=== PATIENT | female | born 1955 | race Caucasian/White ===

== ENCOUNTER 2017-04-03 20:33 | Emergency (ER) | payer MEDICAID ==
[~2017-04-03] VITALS: Ht 157.5 cm; Wt 117.9 kg
[2017-04-03 20:37] VITALS: BP 151/79
[2017-04-03 21:03] LABS: Basophils # (auto) 0 uL; Basophils % (auto) 0.4 % (0.0-2.0); Eosinophils # (auto) 0.2 uL; Eosinophils % (auto) 1.8 % (0.0-7.0); Hematocrit 44.5 % (36.0-46.0); Hemoglobin 14.8 g/dL (12.2-16.2); Lymphocytes # (auto) 2.6 uL; Lymphocytes % (auto) 23.2 % (10.0-50.0); Mean Corpuscular Hemoglobin 28.6 pg (28.0-32.0); Mean Corpuscular Hgb Conc. 33.3 g/dL (32.0-36.0); Mean Corpuscular Volume 85.9 fL (80.0-100.0); Mean Platelet Volume 7.4 fL (7.4-10.4); Monocytes # (auto) 0.7 uL; Monocytes % (auto) 6.6 % (0.0-12.0); Neutrophils # (auto) 7.7 uL; Platelet Count (auto) 470 10^3/uL (140-450); Red Cell Distribution Width 13.9 % (11.6-16.0); White Blood Cell 11.3 10^3/uL (4.4-10.8)
[2017-04-03 21:22] LABS: Albumin 3.8 g/dL (3.4-5.0); Anion Gap 12 (5-15); Aspartate Aminotransferase 18 U/L (15-37); BUN/Creatinine Ratio 21.2; Blood Urea Nitrogen 21 mg/dL (7-18); Calcium 9.3 mg/dL (8.5-10.1); Carbon Dioxide 22 mmol/L (21-32); Chloride 105 mmol/L (98-107); GFR African American 74 mL/min; GFR Non-African American 61 mL/min; Glucose 100 mg/dL (74-106); Magnesium 2.1 mg/dL (1.6-2.6); Potassium 4.2 mmol/L (3.5-5.1); Sodium 139 mmol/L (136-145)
[2017-04-03 21:38] LABS: Alkaline Phosphatase 116 U/L (45-117); Bilirubin, Total 0.5 mg/dL (0.2-1.0); Total Protein 8.7 g/dL (6.4-8.2)
[2017-04-03 22:44] LABS: Urine Bilirubin Negative (Negative); Urine Blood Negative /uL (Negative); Urine Color Yellow (Yellow); Urine Glucose Normal (Normal); Urine Ketone Negative (Negative); Urine Nitrite Negative (Negative); Urine RBC 3 /hpf (0 - 4); Urine Squamous Epithelial Cell FEW /hpf (<5); Urine Urobilinogen Normal (Negative); Urine pH 5.5 (5.0-8.0)
== END 2017-04-04 01:15 | disposition left against medical advice (07) ==
LOC: ER 20:33
DX: R07.89 Other chest pain (principal); Z53.21 Procedure and treatment not carried out due to patient leaving prior to being seen by health care provider
CPT/HCPCS: 36415; 71020; 80053; 81001; 83735; 84443; 84484; 85025; 93005

== ENCOUNTER 2017-04-09 16:35 | Emergency (ER) | payer MEDICAID ==
[~2017-04-09] VITALS: Ht 157.5 cm; Wt 131.1 kg
[2017-04-09 17:49] LABS: Basophils # (auto) 0.2 uL; Basophils % (auto) 1.5 % (0.0-2.0); Eosinophils # (auto) 0.1 uL; Eosinophils % (auto) 1.2 % (0.0-7.0); Hemoglobin 14.5 g/dL (12.2-16.2); Lymphocytes # (auto) 2.5 uL; Lymphocytes % (auto) 20.2 % (10.0-50.0); Mean Corpuscular Hemoglobin 28.9 pg (28.0-32.0); Mean Corpuscular Hgb Conc. 33.8 g/dL (32.0-36.0); Mean Corpuscular Volume 85.5 fL (80.0-100.0); Mean Platelet Volume 7.9 fL (7.4-10.4); Monocytes # (auto) 0.9 uL; Monocytes % (auto) 6.8 % (0.0-12.0); Neutrophils # (auto) 8.9 uL; Neutrophils % (auto) 70.3 % (37.0-80.0); Platelet Count (auto) 440 10^3/uL (140-450); Red Cell Distribution Width 13.4 % (11.6-16.0); White Blood Cell 12.6 10^3/uL (4.4-10.8)
[2017-04-09 17:50] LABS: BUN/Creatinine Ratio 18.8; Calcium 9.1 mg/dL (8.5-10.1); Potassium 3.7 mmol/L (3.5-5.1)
[2017-04-09 22:15] LABS: B-Type Natriuretic Peptide 3.61 pg/mL (0-100)
[2017-04-09 22:19] LABS: Temperature: 23.5 C (20.0-25.0)
[2017-04-09 22:55] VITALS: BP 155/96
[2017-04-09] MEDS ORDERED: FUROSEMIDE 20 MG TAB PO ONE (23:00)
== END 2017-04-10 00:06 | disposition home or self-care (01) ==
LOC: ER 16:36
DX: R06.02 Shortness of breath (principal); I87.8 Other specified disorders of veins; R22.42 Localized swelling, mass and lump, left lower limb; Z88.2 Allergy status to sulfonamides
CPT/HCPCS: 36415; 71010; 73562; 80048; 83880; 84484; 85025; 93005; 93970

== ENCOUNTER 2017-12-23 06:55 | Day surgery (SDC) | payer MEDICAID ==
[~2017-12-23] VITALS: Ht 157.5 cm; Wt 131.5 kg
[~2017-12-23 06:55] MED LIST: ASPI81TA27 PO; LORA2TAB10 PO
[2017-12-23] MEDS ORDERED: IOHEXOL 350 MG/ML 100ML IJ ONE (07:32)
[2017-12-23] MEDS ORDERED: LIDOCAINE 2%HCL (LOCAL ANESTH.) INJ 20ML MDV ONE (07:32)
[2017-12-23] MEDS ORDERED: fentaNYL CITRATE 100 MCG/2 ML VL ONE ×2 (07:39→08:21)
[2017-12-23] MEDS ORDERED: MIDAZOLAM HCL 1MG/1ML-2 ML VIAL ONE (07:40)
[2017-12-23] MEDS ORDERED: ANGIOMAX 250 MG VIAL IV ONE (07:56)
[2017-12-23] MEDS ORDERED: SODIUM CHL 0.9% 0 ML ONE (07:56)
== END 2017-12-23 10:55 | disposition home or self-care (01) ==
LOC: CATH 06:55
PROVIDERS: ATTEND Internal Medicine Cardiovascular Disease
DX: R07.9 Chest pain, unspecified (principal); E66.01 Morbid (severe) obesity due to excess calories; Z68.43 Body mass index [BMI] 50.0-59.9, adult; Z88.2 Allergy status to sulfonamides; Z88.1 Allergy status to other antibiotic agents; I10 Essential (primary) hypertension; E11.9 Type 2 diabetes mellitus without complications; E78.5 Hyperlipidemia, unspecified; F41.9 Anxiety disorder, unspecified
CPT/HCPCS: 93460; C1760; C1894; J1644; J3010; J7030; Q9967; 93458; 99152; J2250

== ENCOUNTER → 2018-12-10 | Outpatient (CLI) | payer MEDICAID ==
[~2018-12-10] MED LIST changes: +KETOROLAC TROMETH 60MG/2ML VIAL IM ONE
[2018-12-10 16:00] VITALS: BP 149/77
--- NOTE | 2018-12-10 16:30 | NUR ---
PT. TO CLINIC FOR EKG PER DR. JAMES FOR CLEARANCE FOR RESUMING WT. LOSS CLINIC. WT. UP 18.4 LBS. SINCE LAST SEEN 8 MOS AGO. SPOUSE WITH PT, WHO COMPLAINING MORE OF LEFT KNEE PAIN DUE TO INCREASE WT GAIN. ORDERS RECEIVED AND CARRIED OUT.
--- NOTE | 2018-12-10 16:40 | NUR ---
EKG DONE SHOWING NSR WITH NO ECTOPY . RESULTS TO DR. JAMES.
--- NOTE | 2018-12-10 16:50 | NUR ---
MEDS: PT. MEDICATED WITH TORADOL 60MG IM PER MD AFTER ALL LABS REVIEWED WITH MD. COPIES OF OUTSIDE LABS GIVEN TO PT.
[2018-12-10 17:00] VITALS: BP 146/78
--- NOTE | 2018-12-10 17:00 | NUR ---
Discharge Instructions See e-MAR for any mediations given with this visit. Patient education given on disease process. Patient verbalized understanding. Previous labs reviewed. Patient discharged in stable condition with after care instructions and follow up appointment.PT. TO HAVE APPT. WITH DR. JAMES IN ONE WEEK.PT. INSTRUCTED TO INCREASE LASIX TO 40MG BID ON . AND FRIDAYS ONLY WITH ADJUSTMENT IN POTASSIUM.
== END | disposition home or self-care (01) ==
LOC: CHF HDHVI 16:40
PROVIDERS: ATTEND Internal Medicine
DX: E66.01 Morbid (severe) obesity due to excess calories (principal); M25.562 Pain in left knee; I25.10 Atherosclerotic heart disease of native coronary artery without angina pectoris; I10 Essential (primary) hypertension; E11.9 Type 2 diabetes mellitus without complications; E78.5 Hyperlipidemia, unspecified; F41.9 Anxiety disorder, unspecified; Z68.43 Body mass index [BMI] 50.0-59.9, adult
CPT/HCPCS: 93005; 96372; G0463; J1885

== ENCOUNTER → 2018-12-11 | Outpatient (CLI) | payer MEDICAID ==
[~2018-12-11] MED LIST changes: -KETOROLAC TROMETH 60MG/2ML VIAL IM ONE
== END | disposition home or self-care (01) ==
LOC: Rad HDHVI 13:11
PROVIDERS: ATTEND Internal Medicine Cardiovascular Disease
DX: K57.30 Diverticulosis of large intestine without perforation or abscess without bleeding (principal); N20.0 Calculus of kidney; K42.9 Umbilical hernia without obstruction or gangrene
CPT/HCPCS: 74176

== ENCOUNTER → 2018-12-29 | Outpatient (CLI) | payer MEDICARE, MEDICAID ==
[2018-12-29 16:06] LABS: BUN/Creatinine Ratio 21.7; Calcium 9.2 mg/dL (8.5-10.1); Magnesium 2.1 mg/dL (1.6-2.6); Potassium 3.7 mmol/L (3.5-5.1)
[2018-12-29 16:19] LABS: Uric Acid 9.4 mg/dL (2.6-6.0)
== END | disposition home or self-care (01) ==
LOC: CHF HDHVI 11:58
PROVIDERS: ATTEND Internal Medicine Cardiovascular Disease
DX: E83.40 Disorders of magnesium metabolism, unspecified (principal); I10 Essential (primary) hypertension; M10.9 Gout, unspecified
CPT/HCPCS: 36415; 80048; 83735; 84550

== ENCOUNTER → 2019-03-05 | Outpatient (CLI) | payer MEDICARE, MEDICAID ==
[~2019-03-05] MED LIST changes: +CHOL200031 PO; +CYANOCOBALAMIN (B-12) 1000 MCG/1 ML VIAL IM ONE; +CYANOCOBALAMIN (B-12) 1000 MCG/1 ML VIAL ONE; +FURO40TA4 PO; +MAGN400T5 PO; +POTA10TA75 PO
[2019-03-05 11:15] VITALS: BP 126/70
[2019-03-05 12:05] VITALS: BP 142/78
--- NOTE | 2019-03-05 12:05 | NUR ---
CHF CLINIC Discharge Instructions See e-MAR for any mediations given with this visit. Patient education given on disease process. Patient verbalized understanding. Previous labs reviewed. Patient discharged in stable condition with after care instructions and follow up appointment NEXT FRIDAY AT THE [facility]. NOTE B12 IM L DELTOID ADMIN BY ANNA SEPULVEDA. PRESCRIPTION FOR ULORIC 40MG DAILY SENT TO PATIENT PHARMACY.
[2019-03-05 15:58] LABS: Calcium 8.7 mg/dL (8.5-10.1); Magnesium 2.5 mg/dL (1.6-2.6); Potassium 3.9 mmol/L (3.5-5.1)
[2019-03-05 16:00] LABS: BUN/Creatinine Ratio 29.7
== END | disposition home or self-care (01) ==
LOC: CHF HDHVI 10:24
PROVIDERS: ATTEND Internal Medicine Cardiovascular Disease
DX: I11.0 Hypertensive heart disease with heart failure (principal); I50.32 Chronic diastolic (congestive) heart failure; R53.1 Weakness; M10.9 Gout, unspecified; I27.21 Secondary pulmonary arterial hypertension; G47.30 Sleep apnea, unspecified; Z90.49 Acquired absence of other specified parts of digestive tract; Z68.43 Body mass index [BMI] 50.0-59.9, adult; Z79.899 Other long term (current) drug therapy; Z79.82 Long term (current) use of aspirin
CPT/HCPCS: 36415; 80048; 83735; 84550; 96372; G0463; J3420

== ENCOUNTER → 2019-04-06 | Outpatient (CLI) | payer MEDICARE, MEDICAID ==
[~2019-04-06] MED LIST changes: +ACET-1304 PO; +CELE200C PO; -CYANOCOBALAMIN (B-12) 1000 MCG/1 ML VIAL IM ONE; -CYANOCOBALAMIN (B-12) 1000 MCG/1 ML VIAL ONE; +DOXE25CA2 PO; +FEBU80TA PO; +POTA20TA53 PO; +TORS20TA20 PO
[2019-04-06 10:30] VITALS: BP 143/90
--- NOTE | 2019-04-06 10:30 | NUR ---
CHF Pre-Op Discharge Summary: See e-MAR for any medications given for this visit. Pre-op orders received and carried out per MD of EKG, LABS and chest xrays. Patient given a copy of EKG with instructions to go to [facility] out patient for further follow up care.
[2019-04-06 11:00] VITALS: BP 128/77
[2019-04-06 12:03] LABS: Basophils # (auto) 0.1 uL; Eosinophils # (auto) 0.2 uL; Lymphocytes # (auto) 3.4 uL; Monocytes # (auto) 0.8 uL; White Blood Cell 12.9 10^3/uL (4.4-10.8)
[2019-04-06 12:08] LABS: Basophils % (auto) 0.6 % (0.0-2.0); Eosinophils % (auto) 1.6 % (0.0-7.0); Hematocrit 45.2 % (36.0-46.0); Hemoglobin 14.7 g/dL (12.2-16.2); Lymphocytes % (auto) 26.3 % (10.0-50.0); Mean Corpuscular Hemoglobin 28.6 pg (28.0-32.0); Mean Corpuscular Hgb Conc. 32.5 g/dL (32.0-36.0); Mean Corpuscular Volume 88.1 fL (80.0-100.0); Monocytes % (auto) 6.4 % (0.0-12.0); Neutrophils # (auto) 8.4 uL; Neutrophils % (auto) 65.1 % (37.0-80.0); Platelet Count (auto) 470 10^3/uL (140-450); Red Blood Cells 5.14 10^6/uL (4.0-5.20); Red Cell Distribution Width 13.9 % (11.8-14.3)
[2019-04-06 12:09] LABS: INR 0.99 (0.9-1.15); Partial Thromboplastin Time 26.3 sec (23.64-32.05); Prothrombin Time 10.7 sec (9.06-12.60)
[2019-04-06 12:34] LABS: Potassium 3.6 mmol/L (3.5-5.1)
[2019-04-06 12:41] LABS: BUN/Creatinine Ratio 29.6; Calcium 9.1 mg/dL (8.5-10.1)
== END | disposition home or self-care (01) ==
LOC: Rad HDHVI 10:15
PROVIDERS: ATTEND Internal Medicine Cardiovascular Disease
DX: Z01.818 Encounter for other preprocedural examination (principal); D64.9 Anemia, unspecified; R79.1 Abnormal coagulation profile; I11.0 Hypertensive heart disease with heart failure; I50.9 Heart failure, unspecified
CPT/HCPCS: 36415; 71046; 80048; 85025; 85610; 85730; 93005; G0463

== ENCOUNTER → 2019-04-08 | Day surgery (SDC) | payer MEDICARE, MEDICAID ==
[~2019-04-08] VITALS: Ht 157.5 cm; Wt 131.5 kg
[~2019-04-08] MED LIST changes: +ANGIOMAX 250 MG VIAL IV ONE; -ASPI81TA27 PO; -FURO40TA4 PO; +HYDROcodone-ACET 10/325MG TAB ONE; +IOHEXOL 350 MG/ML 100ML IJ ONE; +LIDOCAINE 2%HCL (LOCAL ANESTH.) INJ 20ML MDV ONE; -LORA2TAB10 PO; +MIDAZOLAM HCL 1MG/1ML-2 ML VIAL ONE; +POTA-220 PO; -POTA10TA75 PO; -POTA20TA53 PO; +SODIUM CHL 0.9% 0 ML ONE; +VERAPAMIL 2.5MG/ML INJ 2ML VIAL IV ONE; +fentaNYL CITRATE 100 MCG/2 ML VL ONE
== END | disposition home or self-care (01) ==
LOC: CATH 08:15
PROVIDERS: ATTEND Internal Medicine Cardiovascular Disease
DX: R07.9 Chest pain, unspecified (principal); R06.02 Shortness of breath; I11.0 Hypertensive heart disease with heart failure; I50.9 Heart failure, unspecified; E66.8 Other obesity; E11.40 Type 2 diabetes mellitus with diabetic neuropathy, unspecified; E11.21 Type 2 diabetes mellitus with diabetic nephropathy; E03.9 Hypothyroidism, unspecified; E78.5 Hyperlipidemia, unspecified; I73.9 Peripheral vascular disease, unspecified; I27.20 Pulmonary hypertension, unspecified; G47.33 Obstructive sleep apnea (adult) (pediatric); F41.9 Anxiety disorder, unspecified; M47.816 Spondylosis without myelopathy or radiculopathy, lumbar region; Z79.899 Other long term (current) drug therapy; Z88.2 Allergy status to sulfonamides; Z88.1 Allergy status to other antibiotic agents; Z68.43 Body mass index [BMI] 50.0-59.9, adult
CPT/HCPCS: 93460; C1760; C1769; C1894; J1644; J2250; J3010; J7030; 99152; 99153

== ENCOUNTER → 2019-04-21 | Outpatient (CLI) | payer MEDICARE, MEDICAID ==
[~2019-04-21] MED LIST changes: -ANGIOMAX 250 MG VIAL IV ONE; -HYDROcodone-ACET 10/325MG TAB ONE; -IOHEXOL 350 MG/ML 100ML IJ ONE; -LIDOCAINE 2%HCL (LOCAL ANESTH.) INJ 20ML MDV ONE; -MIDAZOLAM HCL 1MG/1ML-2 ML VIAL ONE; -POTA-220 PO; +POTA20TA53 PO; -SODIUM CHL 0.9% 0 ML ONE; -VERAPAMIL 2.5MG/ML INJ 2ML VIAL IV ONE; -fentaNYL CITRATE 100 MCG/2 ML VL ONE
== END | disposition home or self-care (01) ==
LOC: LAB 13:14
PROVIDERS: ATTEND Internal Medicine Cardiovascular Disease
DX: M10.9 Gout, unspecified (principal)
CPT/HCPCS: 36415; 84550

== ENCOUNTER → 2019-09-22 | Outpatient (CLI) | payer MEDICARE, MEDICAID ==
[~2019-09-22] MED LIST changes: +MAGN400T40 PO; -MAGN400T5 PO; +POTA-220 PO; -POTA20TA53 PO
== END | disposition home or self-care (01) ==
LOC: Rad HDHVI 10:47
PROVIDERS: ATTEND Internal Medicine Cardiovascular Disease
DX: I87.2 Venous insufficiency (chronic) (peripheral) (principal); I89.0 Lymphedema, not elsewhere classified
CPT/HCPCS: 93970

== ENCOUNTER → 2019-09-30 | Outpatient (CLI) | payer MEDICARE, MEDICAID ==
[~2019-09-30] MED LIST changes: -MAGN400T40 PO; +MAGN400T5 PO
== END | disposition home or self-care (01) ==
LOC: Rad HDHVI 14:50
PROVIDERS: ATTEND Internal Medicine Cardiovascular Disease
DX: I50.23 Acute on chronic systolic (congestive) heart failure (principal); I27.0 Primary pulmonary hypertension; R06.02 Shortness of breath
CPT/HCPCS: 93306

== ENCOUNTER → 2019-10-21 | Outpatient (CLI) | payer MEDICARE, MEDICAID ==
[~2019-10-21] VITALS: Ht 157.5 cm; Wt 133.8 kg
[~2019-10-21] MED LIST changes: +ADENOSINE 112 MG in GIVE UN-DILUTED 0 ML IV ONE; +ADENOSINE 90 MG/30 ML INJ IV ONE; +MAGN400T40 PO; -MAGN400T5 PO
[2019-10-21 15:57] LABS: Albumin 3.5 g/dL (3.4-5.0); Calcium 9.5 mg/dL (8.5-10.1); Potassium 3.2 mmol/L (3.5-5.1)
[2019-10-21 16:10] LABS: BUN/Creatinine Ratio 23.7; Bilirubin, Total 0.4 mg/dL (0.2-1.0); Total Protein 8.5 g/dL (6.4-8.2); Uric Acid 7.2 mg/dL (2.6-6.0)
== END | disposition home or self-care (01) ==
LOC: Rad HDHVI 12:38
PROVIDERS: ATTEND Internal Medicine Cardiovascular Disease
DX: M10.9 Gout, unspecified (principal); R06.02 Shortness of breath; I10 Essential (primary) hypertension; E78.00 Pure hypercholesterolemia, unspecified
CPT/HCPCS: 36415; 78452; 80053; 84550; 93005; 96374; 96375; A9500; J0153

== ENCOUNTER → 2019-10-26 | Outpatient (CLI) | payer MEDICARE, MEDICAID ==
[~2019-10-26] MED LIST changes: -ADENOSINE 112 MG in GIVE UN-DILUTED 0 ML IV ONE; -ADENOSINE 90 MG/30 ML INJ IV ONE
== END | disposition home or self-care (01) ==
LOC: LAB 14:16
PROVIDERS: ATTEND Internal Medicine Cardiovascular Disease
DX: R94.4 Abnormal results of kidney function studies (principal)
CPT/HCPCS: 36415; 82565

== ENCOUNTER → 2019-10-27 | Outpatient (CLI) | payer MEDICARE, MEDICAID ==
[~2019-10-27] MED LIST changes: +IOHEXOL 350 MG/ML 100ML IJ ONE
[2019-10-27 09:15] VITALS: BP 136/86
--- NOTE | 2019-10-27 09:15 | NUR ---
PT ARRIVED AT [facility] FOR CT ABD/PEL. PATIENT ALERT AND AWAKE WITH EVEN AND UNLABORED RESPIRATIONS. VVS.
--- NOTE | 2019-10-27 09:30 | NUR ---
IV insertion IV access obtained, via clean sterile technique by inserting [22] gauge catheter at [R HAND] after [2] attempt(s). IV secured properly. No trauma to site. Patient tolerated well. Addendum: 10/27/19 at 0957 by ANNA ALBRIGHT RN IV INSERTED BY SANDRO FIORE
--- NOTE | 2019-10-27 09:40 | NUR ---
PT BACK TO CT
--- NOTE | 2019-10-27 09:56 | NUR ---
IV removal IV DC'd with sterile technique, catheter fully intact. Pressure dressing applied to site. Patient tolerated procedure well.
[2019-10-27 10:00] VITALS: BP 149/86
--- NOTE | 2019-10-27 10:00 | NUR ---
CHF Clinic Discharge Instructions See e-MAR for any mediations given with this visit. Patient education given on disease process. Patient verbalized understanding. Previous labs reviewed. VSS after returning from CT. Patient discharged in stable condition with after care instructions. NOTES: Pt instructed to increase oral hydration over the next 24 hours. Patient verbalized understanding.
== END | disposition home or self-care (01) ==
LOC: Rad HDHVI 09:03
PROVIDERS: ATTEND Internal Medicine Cardiovascular Disease
DX: N20.0 Calculus of kidney (principal); K42.9 Umbilical hernia without obstruction or gangrene; K57.30 Diverticulosis of large intestine without perforation or abscess without bleeding; K85.90 Acute pancreatitis without necrosis or infection, unspecified; R06.02 Shortness of breath; R10.9 Unspecified abdominal pain
CPT/HCPCS: 74177; G0463; Q9967

== ENCOUNTER → 2020-03-29 | Outpatient (CLI) | payer MEDICARE, MEDICAID ==
[~2020-03-29] MED LIST changes: +FUROSEMIDE 100 MG/10ML VIAL IV ONE; +FUROSEMIDE 40 MG/4 ML VIAL ONE; -IOHEXOL 350 MG/ML 100ML IJ ONE; +POTASSIUM CHL 10 Meq TABLET PO ONE; +POTASSIUM CHL 20 Meq TABLET PO ONE
[2020-03-29 13:15] VITALS: BP 132/78
--- NOTE | 2020-03-29 13:15 | NUR ---
CHF PT ARRIVED TO THE CHF CLINIC FROM BACK OFFICE VISIT WITH ORDERS FROM MD JAMES. A/O X4, AMBULATORY. SEE EMAR FOR ORDERS CARRIED OUT.
[2020-03-29 13:52] VITALS: BP 146/82
--- NOTE | 2020-03-29 13:52 | NUR ---
Discharge Instructions See e-MAR for any mediations given with this visit. Patient education given on disease process. Patient verbalized understanding. Previous labs reviewed. Patient discharged in stable condition with after care instructions and follow up appointment. PT HAS A F/U APPOINTMENT ON 04/11/20 IN CHF CLINIC. NOTE LASIX IVP ADMIN BY AUSTIN FIORE K+ PO ADMIN BY AUSTIN FIORE
[2020-03-29 15:53] LABS: Urine Blood Negative /uL (Negative); Urine Specific Gravity 1.016 (1.001-1.035)
[2020-03-29 15:59] LABS: Basophils # (auto) 0.1 10 ^3/uL (0-0.2); Basophils % (auto) 0.8 % (0.0-2.0); Eosinophils # (auto) 0.2 10 ^3/uL (0-0.8); Eosinophils % (auto) 2.4 % (0.0-7.0); Hematocrit 44.5 % (36.0-46.0); Hemoglobin 14.4 g/dL (12.2-16.2); Lymphocytes # (auto) 2.2 10 ^3/uL (0.4-5.4); Lymphocytes % (auto) 23.4 % (10.0-50.0); Mean Corpuscular Hemoglobin 28.6 pg (28.0-32.0); Mean Corpuscular Hgb Conc. 32.5 g/dL (32.0-36.0); Monocytes # (auto) 0.7 10 ^3/uL (0-1.3); Monocytes % (auto) 7.5 % (0.0-12.0); Neutrophils # (auto) 6.2 10 ^3/uL (1.6-8.6); Neutrophils % (auto) 65.9 % (37.0-80.0); Nucleated Red Blood Cells % 0.1 %; Platelet Count (auto) 414 10^3/uL (140-450); Red Blood Cells 5.05 10^6/uL (4.0-5.20); Red Cell Distribution Width 13.6 % (11.8-14.3); White Blood Cell 9.4 10^3/uL (4.4-10.8)
[2020-03-29 16:07] LABS: Albumin 3.7 g/dL (3.4-5.0); Calcium 9.7 mg/dL (8.5-10.1); Potassium 3.4 mmol/L (3.5-5.1)
[2020-03-29 16:13] LABS: BUN/Creatinine Ratio 29.2; Bilirubin, Total 0.8 mg/dL (0.2-1.0); Total Protein 8.6 g/dL (6.4-8.2)
[2020-03-29 16:14] LABS: Free T4 (Free Thyroxine) 1.19 ng/dL (0.89-1.76)
== END | disposition home or self-care (01) ==
LOC: LAB 11:59
PROVIDERS: ATTEND Internal Medicine Cardiovascular Disease
DX: Z00.00 Encounter for general adult medical examination without abnormal findings (principal); E03.9 Hypothyroidism, unspecified; K90.9 Intestinal malabsorption, unspecified; Z79.899 Other long term (current) drug therapy; N39.0 Urinary tract infection, site not specified; D51.9 Vitamin B12 deficiency anemia, unspecified
CPT/HCPCS: 36415; 80053; 80061; 81003; 82306; 82607; 83036; 83880; 84439; 84443; 85025; 96374; G0463; J1940

== ENCOUNTER → 2020-04-11 | Outpatient (CLI) | payer MEDICARE, MEDICAID ==
[~2020-04-11] MED LIST changes: -POTASSIUM CHL 20 Meq TABLET PO ONE
--- NOTE | 2020-04-11 14:51 | NUR ---
CHF PT ARRIVED TO THE CHF CLINIC FOR F/U AND TREATMENT PER MD ORDERS. A/OX4. AMBULATORY WITH SOME SOB WITH AMBULATION NOTED. PT HAS 3.3 LB WT LOSS SINCE LAST VISIT ON 03/29/20. LABS DRAWN AND SENT.
[2020-04-11 15:28] VITALS: BP 121/86
--- NOTE | 2020-04-11 15:28 | NUR ---
Discharge Instructions See e-MAR for any mediations given with this visit. Patient education given on disease process. Patient verbalized understanding. Previous labs reviewed. Patient discharged in stable condition with after care instructions and follow up appointment. PT TO RETURN IN 2 WEEKS FOR F/U AND EVAL PER MD ORDERS. REINFORCED BETTER DIET HABITS AND ACTIVITY WITH PT. PT VERBALIZED UNDERSTANDING. NOTE LASIX IVP ADMIN BY AUSTIN FIORE K+ PO ADMIN BY AUSTIN FIORE
== END | disposition home or self-care (01) ==
LOC: CHF HDHVI 14:47
PROVIDERS: ATTEND Internal Medicine Cardiovascular Disease
DX: R06.02 Shortness of breath (principal); R94.4 Abnormal results of kidney function studies; E87.6 Hypokalemia; M10.9 Gout, unspecified; I50.9 Heart failure, unspecified; R53.83 Other fatigue; R60.9 Edema, unspecified
CPT/HCPCS: 36415; 71046; 82565; 84132; 84520; 84550; 96374; G0463; J1940

== ENCOUNTER → 2020-04-19 | Outpatient (CLI) | payer MEDICARE, MEDICAID ==
[~2020-04-19] MED LIST changes: -FUROSEMIDE 100 MG/10ML VIAL IV ONE; -FUROSEMIDE 40 MG/4 ML VIAL ONE; -POTASSIUM CHL 10 Meq TABLET PO ONE
[2020-04-19 16:25] LABS: BUN/Creatinine Ratio 16.7; Calcium 8.9 mg/dL (8.5-10.1); Potassium 3.4 mmol/L (3.5-5.1)
== END | disposition home or self-care (01) ==
LOC: LAB 14:55
PROVIDERS: ATTEND Internal Medicine Cardiovascular Disease
DX: I50.9 Heart failure, unspecified (principal)
CPT/HCPCS: 36415; 80048; 83880

== ENCOUNTER → 2020-04-24 | Outpatient (CLI) | payer MEDICARE, MEDICAID ==
[~2020-04-24] MED LIST changes: +IOHEXOL 350 MG/ML 100ML IJ ONE
[2020-04-24 11:30] VITALS: BP 128/70
--- NOTE | 2020-04-24 11:30 | NUR ---
CHF PT ARRIVED TO THE CHF CLINIC FOR CT CHEST WITH CONTRAST TO R/O PE. A/O X4. AMBULATORY.
--- NOTE | 2020-04-24 11:42 | NUR ---
IV insertion IV access obtained, via clean sterile technique by inserting 20 gauge catheter at RAC after 1 attempt(s). IV secured properly. No trauma to site. Patient tolerated procedure well. LABS DRAWN AND SENT NOTE INSERTED BY AUSTIN FIORE
--- NOTE | 2020-04-24 12:21 | NUR ---
IV removal IV DC'd with sterile technique, catheter fully intact. Pressure dressing applied to site. Patient tolerated procedure well. Discharged with aftercare instructions per MD. NOTE: REMOVED BY FLORENCE FIORE
[2020-04-24 12:30] VITALS: BP 141/68
--- NOTE | 2020-04-24 12:30 | NUR ---
Discharge Instructions See e-MAR for any mediations given with this visit. Patient education given on disease process. Patient verbalized understanding. Previous labs reviewed. Patient discharged in stable condition with after care instructions and follow up appointment. PT ON FLUID RESTRICTION BUT DUE TO CT PT TOLD TO DRINK 2L OF FLUIDS FOR THE NEXT 24HR.
== END | disposition home or self-care (01) ==
LOC: Rad HDHVI 11:05
PROVIDERS: ATTEND Internal Medicine Cardiovascular Disease
DX: M47.894 Other spondylosis, thoracic region (principal); J90 Pleural effusion, not elsewhere classified; R07.9 Chest pain, unspecified; R06.02 Shortness of breath
CPT/HCPCS: 36415; 71275; 82565; G0463; Q9967

== ENCOUNTER → 2020-05-05 | Outpatient (CLI) | payer MEDICARE, MEDICAID ==
[~2020-05-05] VITALS: Ht 157.5 cm; Wt 129.3 kg
[~2020-05-05] MED LIST changes: +ADENOSINE 108 MG in GIVE UN-DILUTED 0 ML IV ONE; +ADENOSINE 90 MG/30 ML INJ IV ONE; -IOHEXOL 350 MG/ML 100ML IJ ONE
== END | disposition home or self-care (01) ==
LOC: Rad HDHVI 10:09
PROVIDERS: ATTEND Internal Medicine Cardiovascular Disease
DX: R07.9 Chest pain, unspecified (principal); E78.00 Pure hypercholesterolemia, unspecified; E66.9 Obesity, unspecified
CPT/HCPCS: 78452; 93005; 96374; 96375; A9500; J0153

== ENCOUNTER → 2020-06-16 | Outpatient (CLI) | payer MEDICARE, MEDICAID ==
[~2020-06-16] MED LIST changes: -ADENOSINE 108 MG in GIVE UN-DILUTED 0 ML IV ONE; -ADENOSINE 90 MG/30 ML INJ IV ONE; +FUROSEMIDE 100 MG/10ML VIAL IV ONE; +FUROSEMIDE 20 MG TAB PO ONE; +FUROSEMIDE 40 MG TAB ONE; +FUROSEMIDE 40 MG/4 ML VIAL ONE; +POTASSIUM EFFERVESENT TAB 25 MEQ ONE; +POTASSIUM EFFERVESENT TAB 25 MEQ PO ONE
[2020-06-16 12:30] VITALS: BP 152/80
--- NOTE | 2020-06-16 12:30 | NUR ---
CLINIC PT ARRIVED TO THE CHF CLINIC FOR SCHEDULED EVAL AND TX. A/OX4, ON HOME SCOOTER. PT HAS A 2.6LB WT GAIN SINCE LAST VISIT ON 04/24/20. PT STATED THAT SHE DOES NOT TAKE HER HOME DIURETICS PRESCRIBED. HAD DISCUSSION WITH PT ABOUT THE IMPORTANCE OF FOLLOWING HER MEDICATION REGIMEN. PT VERBALIZED UNDERSTANDING.
--- NOTE | 2020-06-16 13:14 | NUR ---
LABS DRAWN AND SENT
[2020-06-16 13:33] VITALS: BP 129/83
--- NOTE | 2020-06-16 13:33 | NUR ---
Discharge Instructions See e-MAR for any mediations given with this visit. Patient education given on disease process. Patient verbalized understanding. Previous labs reviewed. Patient discharged in stable condition with after care instructions and follow up appointment IN 2 WEEKS. NOTE LASIX IVP ADMIN BY FLORENCE FIORE LASIX PO ADMIN BY FLORENCE QUISPE ELIX PO ADMIN BY FLORENCE FIORE
[2020-06-16 15:52] LABS: Basophils # (auto) 0.1 10 ^3/uL (0-0.2); Basophils % (auto) 0.7 % (0.0-2.0); Eosinophils # (auto) 0.2 10 ^3/uL (0-0.8); Eosinophils % (auto) 2.1 % (0.0-7.0); Hematocrit 42.3 % (36.0-46.0); Hemoglobin 13.7 g/dL (12.2-16.2); Lymphocytes # (auto) 2.3 10 ^3/uL (0.4-5.4); Lymphocytes % (auto) 29.4 % (10.0-50.0); Mean Corpuscular Hemoglobin 28.8 pg (28.0-32.0); Mean Corpuscular Hgb Conc. 32.3 g/dL (32.0-36.0); Monocytes # (auto) 0.7 10 ^3/uL (0-1.3); Monocytes % (auto) 8.6 % (0.0-12.0); Neutrophils # (auto) 4.6 10 ^3/uL (1.6-8.6); Neutrophils % (auto) 59.2 % (37.0-80.0); Nucleated Red Blood Cells % 0.1 %; Platelet Count (auto) 348 10^3/uL (140-450); Red Blood Cells 4.75 10^6/uL (4.0-5.20); Red Cell Distribution Width 13.9 % (11.8-14.3); White Blood Cell 7.8 10^3/uL (4.4-10.8)
[2020-06-16 16:28] LABS: Anion Gap 8 (5-15); Blood Urea Nitrogen 22 mg/dL (7-18); Carbon Dioxide 24 mmol/L (21-32); Chloride 104 mmol/L (98-107); Glucose 113 mg/dL (74-106); Potassium 3.6 mmol/L (3.5-5.1); Sodium 136 mmol/L (136-145)
[2020-06-16 16:29] LABS: BUN/Creatinine Ratio 23.7; GFR African American 78 mL/min; GFR Non-African American 65 mL/min; Magnesium 2.3 mg/dL (1.6-2.6)
== END | disposition home or self-care (01) ==
LOC: CHF HDHVI 12:28
PROVIDERS: ATTEND Internal Medicine Cardiovascular Disease
DX: E87.6 Hypokalemia (principal); I10 Essential (primary) hypertension; E83.40 Disorders of magnesium metabolism, unspecified; D64.9 Anemia, unspecified; Z79.899 Other long term (current) drug therapy
CPT/HCPCS: 36415; 80048; 83735; 85025; 96374; G0463; J1940

== ENCOUNTER → 2020-08-15 | Outpatient (CLI) | payer MEDICARE, MEDICAID ==
[~2020-08-15] MED LIST changes: -FUROSEMIDE 100 MG/10ML VIAL IV ONE; -FUROSEMIDE 20 MG TAB PO ONE; -FUROSEMIDE 40 MG TAB ONE; -FUROSEMIDE 40 MG/4 ML VIAL ONE; -POTASSIUM EFFERVESENT TAB 25 MEQ ONE; -POTASSIUM EFFERVESENT TAB 25 MEQ PO ONE
[2020-08-15 13:05] VITALS: BP 133/75
--- NOTE | 2020-08-15 13:05 | NUR ---
PATIENT INTO CLINIC FOR SCHEDULED APPT, AAOx4, AMBULATORY FROM ELECTRIC WHEELCHAIR TO CHAIR, BREATHING AND UNLABORED.
--- NOTE | 2020-08-15 13:25 | NUR ---
PORTACATH SITE INCISION WELL APPROXIMATED, SUTURES INTACT, BRUISING AND EDEMA PRESENT AT SITE, UNABLE TO PALPATE THE CENTER OF THE PORT, DID NOT ACCESS WAITING FOR THE SURGEON TO F/U WITH PATIENT AND OK FOR ACCESS.
--- NOTE | 2020-08-15 14:00 | NUR ---
WOUND CARE PATIENT HAS 2CM CIRCULAR WOUND ON ABD IN THE LOWER LEFT QUADRANT, CLEANSED WITH NS, CULTURE TAKEN, THIN LAYER OF THERA HONEY APPLIED, NON ADHERENT DRESSING APPLIED AND COVERED WITH A TRANSPARENT TEGADERM.
--- NOTE | 2020-08-15 14:15 | NUR ---
BLOOD DRAWN AND SENT FOR STAT LABS AND WOUND CULTURE.
[2020-08-15 14:30] VITALS: BP 157/87
--- NOTE | 2020-08-15 14:30 | NUR ---
Discharge Instructions See e-MAR for any mediations given with this visit. Patient education given on disease process. Patient verbalized understanding. Previous labs reviewed. Patient discharged in stable condition with after care instructions and follow up appointment. NOTE PATIENT EDUCATED ON DIET AND WEIGHT LOSS PER DR JAMES PREVIOUS INSTRUCTIONS, PATIENT UP .7LBS, BY AUSTIN FIORE. PATIENT HAS F/U WITH PORTACATH PLACEMENT MD GUERRERO.
[2020-08-15 14:50] LABS: Basophils # (auto) 0.1 10 ^3/uL (0-0.2); Basophils % (auto) 0.6 % (0.0-2.0); Eosinophils # (auto) 0.2 10 ^3/uL (0-0.8); Eosinophils % (auto) 1.8 % (0.0-7.0); Hematocrit 39.7 % (36.0-46.0); Hemoglobin 13.2 g/dL (12.2-16.2); Lymphocytes # (auto) 2.1 10 ^3/uL (0.4-5.4); Lymphocytes % (auto) 23.7 % (10.0-50.0); Mean Corpuscular Hemoglobin 28.7 pg (28.0-32.0); Mean Corpuscular Hgb Conc. 33.3 g/dL (32.0-36.0); Mean Corpuscular Volume 86.2 fL (80.0-100.0); Monocytes # (auto) 0.7 10 ^3/uL (0-1.3); Monocytes % (auto) 8.3 % (0.0-12.0); Neutrophils # (auto) 5.8 10 ^3/uL (1.6-8.6); Neutrophils % (auto) 65.6 % (37.0-80.0); Nucleated Red Blood Cells % 0.1 %; Platelet Count (auto) 358 10^3/uL (140-450); Red Cell Distribution Width 13.3 % (11.8-14.3); White Blood Cell 8.9 10^3/uL (4.4-10.8)
[2020-08-15 15:01] LABS: Albumin 3.4 g/dL (3.4-5.0); BUN/Creatinine Ratio 17.8; Calcium 9.5 mg/dL (8.5-10.1); Magnesium 1.8 mg/dL (1.6-2.6); Potassium 4.1 mmol/L (3.5-5.1)
[2020-08-15 15:03] LABS: Bilirubin, Total 0.5 mg/dL (0.2-1.0); Total Protein 7.9 g/dL (6.4-8.2)
== END | disposition home or self-care (01) ==
LOC: CHF HDHVI 13:18
PROVIDERS: ATTEND Internal Medicine Cardiovascular Disease
DX: S31.109A Unspecified open wound of abdominal wall, unspecified quadrant without penetration into peritoneal cavity, initial encounter (principal); R53.83 Other fatigue; E66.9 Obesity, unspecified; I50.9 Heart failure, unspecified; Z96.89 Presence of other specified functional implants; X58.XXXA Exposure to other specified factors, initial encounter; Y93.89 Activity, other specified; Y92.89 Other specified places as the place of occurrence of the external cause; Y99.8 Other external cause status
CPT/HCPCS: 36415; 80053; 83735; 83880; 85025; 87205; G0463

== ENCOUNTER → 2020-08-16 | Outpatient (CLI) | payer MEDICARE, MEDICAID ==
[2020-08-16 13:50] VITALS: BP 126/78
[2020-08-16 14:35] VITALS: BP 128/80
== END | disposition home or self-care (01) ==
LOC: CHF HDHVI 13:39
PROVIDERS: ATTEND Internal Medicine Cardiovascular Disease
DX: T14.8XXA Other injury of unspecified body region, initial encounter (principal); E66.9 Obesity, unspecified; I50.9 Heart failure, unspecified; R60.9 Edema, unspecified; X58.XXXA Exposure to other specified factors, initial encounter; Y93.89 Activity, other specified; Y92.89 Other specified places as the place of occurrence of the external cause; Y99.8 Other external cause status; Z96.89 Presence of other specified functional implants
CPT/HCPCS: 71046; G0463

== ENCOUNTER → 2020-08-28 | Outpatient (CLI) | payer MEDICARE, MEDICAID ==
--- NOTE | 2020-08-28 14:15 | NUR ---
PT. TO CLINIC PRIOR TO MD EXAM C/O NAUSEA POSSIBLY FROM ABX REGIMEN. PT. HAS BEEN ON DOXYCYCLINE 100MG BID X 5 DAYS WITH DIFLUCAN 100MG PO X 5 DAYS. NEW EDY CATH RT. UPPER CHEST CONTINUES TO LOOK BETTER, WITH PT. C/O CONTINUED TENDERNESS POST SUTURES REMOVAL. VSS. LABS TO BE DRAWN WITH LABS OF 08/15 REVIEWED WITH PT. ORDERS RECEIVED AND CARRIED OUT.
[2020-08-28 14:20] VITALS: BP 147/78
--- NOTE | 2020-08-28 14:40 | NUR ---
WOUND: WOUND TO LEFT GROIN AREA UNDER SKIN FOLD ALMOST CLOSED AND LEFT OPEN TO AIR, WITH STERILE ABD TO SITE. NO DRAINAGE NOTED, NO REDNESS.
--- NOTE | 2020-08-28 15:00 | NUR ---
LABS DRAWN AND SENT PER MD ORDER.
--- NOTE | 2020-08-28 15:20 | NUR ---
PT. DC'D TO DR. JAMES'S OFFICE FOR EXAM.
[2020-08-28 16:20] VITALS: BP 142/76
--- NOTE | 2020-08-28 16:20 | NUR ---
PT. RTC WITH NEW ORDERS FOR ADDITIONAL LABS AND ORDER TO ACCESS EDY CATH PER DR. JAMES IN AM. PT. WILL RTC AT 10:00 TOMORROW. FOR PROCEDURE AND LABS AND POSSIBLE INFUSION.
--- NOTE | 2020-08-28 16:30 | NUR ---
Discharge Instructions See e-MAR for any mediations given with this visit. Patient education given on disease process. Patient verbalized understanding. Previous labs reviewed. Patient discharged in stable condition with after care instructions and follow up appointment.
== END | disposition home or self-care (01) ==
LOC: CHF HDHVI 14:21
PROVIDERS: ATTEND Internal Medicine Cardiovascular Disease
DX: Z13.1 Encounter for screening for diabetes mellitus (principal); E55.9 Vitamin D deficiency, unspecified; I50.9 Heart failure, unspecified; M10.9 Gout, unspecified; E66.01 Morbid (severe) obesity due to excess calories; G62.9 Polyneuropathy, unspecified; Z96.89 Presence of other specified functional implants; Z79.899 Other long term (current) drug therapy
CPT/HCPCS: 36415; 82306; 83036; G0463

== ENCOUNTER → 2020-08-29 | Outpatient (CLI) | payer MEDICARE, MEDICAID ==
[~2020-08-29] MED LIST changes: +BACITRACIN TOP OINT 1 UD PKG TOP ONE
[2020-08-29 11:52] VITALS: BP 110/73
--- NOTE | 2020-08-29 11:52 | NUR ---
CLINIC PT ARRIVED TO THE CHF CLINIC FOR PORT SITE EVAL S/P SURGICAL PORT INSERTION. A/OX4, PT ARRIVED ON HOME MOBILE WHEELCHAIR, BREATHING IS EVEN AND UNLABORED. PT STATED THAT SHE FEELS MUCH BETTER THAN SHE DID YESTERDAY.
--- NOTE | 2020-08-29 12:05 | NUR ---
MULTIPLE ATTEMPTS TO ACCESS PORT BY AUSTIN RN BY LOCATING THE PORT USING THE PARAMETERS, ATTEMPTS WERE UNSUCCESSFUL.
--- NOTE | 2020-08-29 12:36 | NUR ---
LABS DRAWN AND SENT STAT
--- NOTE | 2020-08-29 13:29 | NUR ---
WOUND CARE DONE BY FLORENCE FIORE BACITRACIN WAS APPLIED TO CLEAN SURGICAL INCISION SITE ON RU NON STICK PAD PLACED ON TOP AND TEGADERM PLACED OVER. PT WAS GIVEN EXTRA SUPPLIES AND INSTRUCTIONS FOR HOME WOUND CARE.
[2020-08-29 14:04] LABS: Basophils # (auto) 0.1 10 ^3/uL (0-0.2); Basophils % (auto) 0.7 % (0.0-2.0); Eosinophils # (auto) 0.2 10 ^3/uL (0-0.8); Eosinophils % (auto) 3.2 % (0.0-7.0); Hemoglobin 13.6 g/dL (12.2-16.2); Lymphocytes # (auto) 2.4 10 ^3/uL (0.4-5.4); Lymphocytes % (auto) 30.5 % (10.0-50.0); Mean Corpuscular Hemoglobin 28.7 pg (28.0-32.0); Mean Corpuscular Hgb Conc. 32.4 g/dL (32.0-36.0); Mean Corpuscular Volume 88.5 fL (80.0-100.0); Monocytes # (auto) 0.6 10 ^3/uL (0-1.3); Monocytes % (auto) 8.2 % (0.0-12.0); Neutrophils # (auto) 4.5 10 ^3/uL (1.6-8.6); Neutrophils % (auto) 57.4 % (37.0-80.0); Nucleated Red Blood Cells % 0.1 %; Platelet Count (auto) 355 10^3/uL (140-450); Red Blood Cells 4.75 10^6/uL (4.0-5.20); White Blood Cell 7.8 10^3/uL (4.4-10.8)
[2020-08-29 14:12] LABS: BUN/Creatinine Ratio 17.9; Calcium 9.8 mg/dL (8.5-10.1); Magnesium 2.1 mg/dL (1.6-2.6); Potassium 3.6 mmol/L (3.5-5.1)
--- NOTE | 2020-08-29 15:00 | NUR ---
UPDATE GIVEN TO MD JAMES WITH CXR AND LAB RESULTS, CXR SHOWS NO CHANGE TO PORT SITE COMPARED TO PREVIOUS CXR, NEW ORDERS RECEIVED AND CARRIED OUT PER MD, PT TO BE D/C WITH PO ANTIBIOTICS AND RTC IN 1 WEEK. PT IS HEMODYNAMICALLY STABLE.
[2020-08-29 15:12] VITALS: BP 139/63
--- NOTE | 2020-08-29 15:12 | NUR ---
Discharge Instructions See e-MAR for any mediations given with this visit. Patient education given on disease process. Patient verbalized understanding. Previous labs reviewed. Patient discharged in stable condition with after care instructions and follow up appointment IN 1 WEEK. PRESCRIPTION FOR KEFLEX 500MG PO QID X7DAYS CALLED TO THE PATIENTS PHARMACY. Addendum: 08/29/20 at 1548 by FLORENCE ROSALES RN RN [place] NOTE WOUND CARE DONE BY FLORENCE FIORE
== END | disposition home or self-care (01) ==
LOC: CHF HDHVI 12:08
PROVIDERS: ATTEND Internal Medicine Cardiovascular Disease
DX: J98.11 Atelectasis (principal); R06.02 Shortness of breath; I50.23 Acute on chronic systolic (congestive) heart failure; Z96.89 Presence of other specified functional implants
CPT/HCPCS: 36415; 71046; 80048; 83735; 85025; 85652; G0463

== ENCOUNTER → 2020-09-05 | Outpatient (CLI) | payer MEDICARE, MEDICAID ==
[~2020-09-05] MED LIST changes: -BACITRACIN TOP OINT 1 UD PKG TOP ONE
[2020-09-05 14:33] VITALS: BP 143/69
--- NOTE | 2020-09-05 14:33 | NUR ---
CLINIC PT ARRIVED TO THE [facility] FOR EVAL ON INCISION SITE S/P PORT INSERTION. A/OX 4, AMBULATORY, BREATHING IS EVEN AND UNLABORED. ACCOMPANIED BY . COMPLAINS OF PAIN AROUND THE SIDES OF WOUND.
--- NOTE | 2020-09-05 14:41 | NUR ---
WOUND CARE DONE BY AUSTIN FIORE NO SWELLING TO INCISION SITE. PT C/O PAIN AROUND SITE, AREA CLEANED WITH CLORA PRED SWAPS. APPT MADE WITH MD JAMES FOR TOMORROW TO [place] FOR PAIN
[2020-09-05 15:05] VITALS: BP 152/74
--- NOTE | 2020-09-05 15:05 | NUR ---
Discharge Instructions See e-MAR for any mediations given with this visit. Patient education given on disease process. Patient verbalized understanding. Previous labs reviewed. Patient discharged in stable condition with after care instructions and follow up appointment TOMORROW WITH MD JAMES. NOTE WOUND CARE DONE BY AUSTIN FIORE
== END | disposition home or self-care (01) ==
LOC: CHF HDHVI 14:31
PROVIDERS: ATTEND Internal Medicine Cardiovascular Disease
DX: I11.0 Hypertensive heart disease with heart failure (principal); I50.23 Acute on chronic systolic (congestive) heart failure
CPT/HCPCS: G0463

== ENCOUNTER → 2020-09-13 | Outpatient (CLI) | payer MEDICARE, MEDICAID ==
[2020-09-13 14:30] VITALS: BP 178/70
--- NOTE | 2020-09-13 14:30 | NUR ---
CLINIC PT ARRIVED TO CLINIC FOR PORT SITE EVALUATION S/P PORT INSERTION.
--- NOTE | 2020-09-13 14:39 | NUR ---
LABS DRAWN AND SENT
[2020-09-13 14:50] VITALS: BP 140/67
--- NOTE | 2020-09-13 14:50 | NUR ---
Discharge Instructions See e-MAR for any mediations given with this visit. Patient education given on disease process. Patient verbalized understanding. Previous labs reviewed. Patient discharged in stable condition with after care instructions and follow up appointment WITH MD JAMES NOW.
[2020-09-13 15:03] LABS: Basophils # (auto) 0.1 10 ^3/uL (0-0.2); Eosinophils # (auto) 0.2 10 ^3/uL (0-0.8); Eosinophils % (auto) 2.2 % (0.0-7.0); Hematocrit 40.1 % (36.0-46.0); Hemoglobin 13.6 g/dL (12.2-16.2); Lymphocytes # (auto) 2.5 10 ^3/uL (0.4-5.4); Lymphocytes % (auto) 28.1 % (10.0-50.0); Mean Corpuscular Hemoglobin 29.3 pg (28.0-32.0); Mean Corpuscular Hgb Conc. 33.8 g/dL (32.0-36.0); Mean Corpuscular Volume 86.8 fL (80.0-100.0); Monocytes # (auto) 0.8 10 ^3/uL (0-1.3); Monocytes % (auto) 8.4 % (0.0-12.0); Neutrophils # (auto) 5.5 10 ^3/uL (1.6-8.6); Neutrophils % (auto) 60.3 % (37.0-80.0); Nucleated Red Blood Cells % 0.1 %; Platelet Count (auto) 375 10^3/uL (140-450); Red Blood Cells 4.62 10^6/uL (4.0-5.20); Red Cell Distribution Width 12.7 % (11.8-14.3); White Blood Cell 9.1 10^3/uL (4.4-10.8)
== END | disposition home or self-care (01) ==
LOC: CHF HDHVI 14:46
PROVIDERS: ATTEND Internal Medicine Cardiovascular Disease
DX: I10 Essential (primary) hypertension (principal); D64.9 Anemia, unspecified; Z98.890 Other specified postprocedural states
CPT/HCPCS: 36415; 85025; G0463

== ENCOUNTER → 2020-09-15 | Outpatient (CLI) | payer MEDICARE, MEDICAID | END | disposition home or self-care (01) | LOC: Rad HDHVI 15:07 | PROVIDERS: ATTEND Internal Medicine Cardiovascular Disease | DX: R00.2 Palpitations (principal); R06.02 Shortness of breath; E78.00 Pure hypercholesterolemia, unspecified; R06.9 Unspecified abnormalities of breathing | CPT/HCPCS: 93306 ==

== ENCOUNTER → 2020-11-29 | Outpatient (CLI) | payer MEDICARE, MEDICAID ==
[~2020-11-29] MED LIST changes: +ACET300T4 PO; +ALPR0.254 PO; +ASCO100076 PO; +ASHW1CAP PO; +CALC-479 PO; +CHOL500040 PO; +COEN100C37 PO; +CYAN100028 SL; +FURO40TA4 PO; +GABA-339 PO; +GARC500T PO; +GARL200T PO; +GING550C PO; +HYDR-4188 PO; +KRIL1CAP11 PO; +METO5TAB5 PO; +MULT50TA14 PO; +OMEG1CAP59 PO; +PANT40TA2 PO; +POTA1TAB61 PO; +PREG50CA PO; +TURM450C PO; +ZINC50TA7 PO; +[UNRECOGNIZED DRUG - CODE] PO
[2020-11-29 15:15] LABS: Basophils # (auto) 0.1 10 ^3/uL (0-0.2); Basophils % (auto) 0.7 % (0.0-2.0); Eosinophils # (auto) 0.2 10 ^3/uL (0-0.8); Eosinophils % (auto) 2.4 % (0.0-7.0); Hematocrit 40.2 % (36.0-46.0); Hemoglobin 13.7 g/dL (12.2-16.2); Lymphocytes # (auto) 2.3 10 ^3/uL (0.4-5.4); Mean Corpuscular Hemoglobin 29.9 pg (28.0-32.0); Mean Corpuscular Hgb Conc. 34.2 g/dL (32.0-36.0); Mean Corpuscular Volume 87.6 fL (80.0-100.0); Monocytes # (auto) 0.5 10 ^3/uL (0-1.3); Monocytes % (auto) 7.2 % (0.0-12.0); Neutrophils # (auto) 4.1 10 ^3/uL (1.6-8.6); Neutrophils % (auto) 57.7 % (37.0-80.0); Nucleated Red Blood Cells % 0.3 %; Red Blood Cells 4.58 10^6/uL (4.0-5.20); Red Cell Distribution Width 13.5 % (11.8-14.3)
[2020-11-29 15:26] LABS: Calcium 9.1 mg/dL (8.5-10.1); Potassium 3.6 mmol/L (3.5-5.1)
== END | disposition home or self-care (01) ==
LOC: Rad HDHVI 11:19
PROVIDERS: ATTEND Internal Medicine Cardiovascular Disease
DX: I10 Essential (primary) hypertension (principal); E11.9 Type 2 diabetes mellitus without complications; D64.9 Anemia, unspecified; Z96.89 Presence of other specified functional implants
CPT/HCPCS: 36415; 71046; 80048; 83036; 85025; 93970

== ENCOUNTER → 2021-02-07 | Day surgery (SDC) | payer MEDICARE, MEDICAID ==
[2021-02-02 15:15] LABS: Basophils # (auto) 0.1 10 ^3/uL (0-0.2); Basophils % (auto) 0.9 % (0.0-2.0); Eosinophils # (auto) 0.1 10 ^3/uL (0-0.8); Eosinophils % (auto) 1.6 % (0.0-7.0); Hematocrit 44.6 % (36.0-46.0); Lymphocytes # (auto) 2.2 10 ^3/uL (0.4-5.4); Lymphocytes % (auto) 25.3 % (10.0-50.0); Mean Corpuscular Hemoglobin 29.3 pg (28.0-32.0); Mean Corpuscular Hgb Conc. 33.7 g/dL (32.0-36.0); Mean Corpuscular Volume 87.1 fL (80.0-100.0); Monocytes # (auto) 0.8 10 ^3/uL (0-1.3); Monocytes % (auto) 9.6 % (0.0-12.0); Neutrophils # (auto) 5.5 10 ^3/uL (1.6-8.6); Neutrophils % (auto) 62.6 % (37.0-80.0); Nucleated Red Blood Cells % 0.1 %; Platelet Count (auto) 369 10^3/uL (140-450); Red Blood Cells 5.12 10^6/uL (4.0-5.20); White Blood Cell 8.8 10^3/uL (4.4-10.8)
[2021-02-02 15:31] LABS: INR 1.11 (0.9-1.15); Partial Thromboplastin Time 27.6 sec (23.0-31.2)
[2021-02-02 15:34] LABS: Urine Bacteria FEW /hpf (None Seen); Urine Blood Negative /uL (Negative); Urine Hyaline Cast FEW /lpf (0 - 2); Urine Mucus FEW (None Seen); Urine Specific Gravity 1.022 (1.001-1.035); Urine WBC <1 /hpf (0 - 5)
[2021-02-02 15:41] LABS: Calcium 9.6 mg/dL (8.5-10.1); Potassium 3.5 mmol/L (3.5-5.1)
[2021-02-02 15:44] LABS: BUN/Creatinine Ratio 26.9; Bilirubin, Total 0.4 mg/dL (0.2-1.0); Total Protein 8.9 g/dL (6.4-8.2)
[~2021-02-07] VITALS: Ht 157.5 cm; Wt 135.2 kg
[~2021-02-07] MED LIST changes: -ACET-1304 PO; +BUPIVACAINE 0.25% INJ 50ML VIAL ONE; -CHOL200031 PO; +HYDROmorphone HCL 2 MG/ML VL IV PRN; +HYDROmorphone HCL 2 MG/ML VL ONE; +LIDOCAINE 1% HCL (LOCAL ANESTH.) INJ 20ML MDV ONE; -METO5TAB5 PO; +METO5TAB56 PO; +MIDAZOLAM HCL 1MG/1ML-2 ML VIAL ONE; +ONDANSETRON HCL 4 MG/2 ML VIAL IV PRN; +ONDANSETRON HCL 4 MG/2 ML VIAL ONE; -POTA-220 PO; +PROPOFOL 10 MG/ML 20 ML IV ONE; +ceFAZolin 1GM/50ML 50 ML IV ONE; +fentaNYL CITRATE 100 MCG/2 ML VL ONE
[2021-02-07 12:25] VITALS: BP 106/61
== END | disposition home or self-care (01) ==
LOC: SUR 07:30
PROVIDERS: ATTEND Surgery
DX: Z45.2 Encounter for adjustment and management of vascular access device (principal); T82.598A Other mechanical complication of other cardiac and vascular devices and implants, initial encounter; I50.9 Heart failure, unspecified; R60.9 Edema, unspecified; G47.30 Sleep apnea, unspecified; F41.9 Anxiety disorder, unspecified; M79.9 Soft tissue disorder, unspecified; J34.1 Cyst and mucocele of nose and nasal sinus; E66.01 Morbid (severe) obesity due to excess calories; I11.0 Hypertensive heart disease with heart failure; K21.9 Gastro-esophageal reflux disease without esophagitis; I27.20 Pulmonary hypertension, unspecified; G62.9 Polyneuropathy, unspecified; G89.29 Other chronic pain; M54.9 Dorsalgia, unspecified; E78.00 Pure hypercholesterolemia, unspecified; M25.50 Pain in unspecified joint; M19.90 Unspecified osteoarthritis, unspecified site; M79.10 Myalgia, unspecified site; E66.9 Obesity, unspecified; Z68.43 Body mass index [BMI] 50.0-59.9, adult; Z98.890 Other specified postprocedural states; Z20.822 Contact with and (suspected) exposure to COVID-19; Z88.1 Allergy status to other antibiotic agents; Z88.8 Allergy status to other drugs, medicaments and biological substances
CPT/HCPCS: 36415; 36589; 80053; 81001; 85025; 85610; 85730; J0690; J1170; J2001; J2250; J2405; J2704; J3010; J3490; U0003; 87070; 87075; 87205

== ENCOUNTER → 2021-03-02 | Outpatient (CLI) | payer MEDICARE, MEDICAID ==
[~2021-03-02] MED LIST changes: -BUPIVACAINE 0.25% INJ 50ML VIAL ONE; -HYDROmorphone HCL 2 MG/ML VL IV PRN; -HYDROmorphone HCL 2 MG/ML VL ONE; -LIDOCAINE 1% HCL (LOCAL ANESTH.) INJ 20ML MDV ONE; -MIDAZOLAM HCL 1MG/1ML-2 ML VIAL ONE; -ONDANSETRON HCL 4 MG/2 ML VIAL IV PRN; -ONDANSETRON HCL 4 MG/2 ML VIAL ONE; -PROPOFOL 10 MG/ML 20 ML IV ONE; -ceFAZolin 1GM/50ML 50 ML IV ONE; -fentaNYL CITRATE 100 MCG/2 ML VL ONE
[2021-03-02 09:15] VITALS: BP 155/87
[2021-03-02 10:02] VITALS: BP 136/86
== END | disposition home or self-care (01) ==
LOC: CHF HDHVI 09:19
PROVIDERS: ATTEND Internal Medicine Cardiovascular Disease
DX: M79.669 Pain in unspecified lower leg (principal)
CPT/HCPCS: G0463

== ENCOUNTER → 2021-03-27 | Outpatient (CLI) | payer MEDICARE, MEDICAID ==
[~2021-03-27] MED LIST changes: +METO5TAB5 PO; -METO5TAB56 PO
[2021-03-27 15:46] LABS: Potassium 3.1 mmol/L (3.5-5.1)
[2021-03-27 15:48] LABS: BUN/Creatinine Ratio 20.5
== END | disposition home or self-care (01) ==
LOC: LAB 14:26
PROVIDERS: ATTEND Internal Medicine Cardiovascular Disease
DX: I11.0 Hypertensive heart disease with heart failure (principal); I50.23 Acute on chronic systolic (congestive) heart failure
CPT/HCPCS: 36415; 80048; 83880

== ENCOUNTER → 2021-08-17 | Outpatient (CLI) | payer MEDICARE, MEDICAID ==
[2021-08-17 12:01] LABS: Urine Blood Negative /uL (Negative); Urine Specific Gravity 1.021 (1.001-1.035)
[2021-08-17 12:03] LABS: Basophils # (auto) 0.1 10 ^3/uL (0-0.2); Basophils % (auto) 0.7 % (0.0-2.0); Eosinophils # (auto) 0.2 10 ^3/uL (0-0.8); Eosinophils % (auto) 2.1 % (0.0-7.0); Hematocrit 42.7 % (36.0-46.0); Hemoglobin 13.9 g/dL (12.2-16.2); Lymphocytes # (auto) 2.8 10 ^3/uL (0.4-5.4); Lymphocytes % (auto) 30.2 % (10.0-50.0); Mean Corpuscular Hemoglobin 28.7 pg (28.0-32.0); Mean Corpuscular Hgb Conc. 32.5 g/dL (32.0-36.0); Mean Corpuscular Volume 88.2 fL (80.0-100.0); Monocytes # (auto) 0.6 10 ^3/uL (0-1.3); Monocytes % (auto) 6.7 % (0.0-12.0); Neutrophils # (auto) 5.6 10 ^3/uL (1.6-8.6); Neutrophils % (auto) 60.3 % (37.0-80.0); Nucleated Red Blood Cells % 0.2 %; Red Blood Cells 4.84 10^6/uL (4.0-5.20); Red Cell Distribution Width 13.5 % (11.8-14.3); White Blood Cell 9.3 10^3/uL (4.4-10.8)
[2021-08-17 12:12] LABS: Free T4 (Free Thyroxine) 1.09 ng/dL (0.89-1.76)
[2021-08-17 13:36] LABS: Potassium 3.5 mmol/L (3.5-5.1)
[2021-08-17 13:41] LABS: Albumin 3.1 g/dL (3.4-5.0); BUN/Creatinine Ratio 19.7; Calcium 9.6 mg/dL (8.5-10.1)
[2021-08-17 14:19] LABS: Bilirubin, Total 0.4 mg/dL (0.2-1.0); Total Protein 7.9 g/dL (6.4-8.2)
== END | disposition home or self-care (01) ==
LOC: LAB 10:14
PROVIDERS: ATTEND Internal Medicine Cardiovascular Disease
DX: D51.3 Other dietary vitamin B12 deficiency anemia (principal); I10 Essential (primary) hypertension; E11.9 Type 2 diabetes mellitus without complications; E55.9 Vitamin D deficiency, unspecified; D64.9 Anemia, unspecified; R00.2 Palpitations; R53.1 Weakness; R30.0 Dysuria
CPT/HCPCS: 36415; 80053; 80061; 81003; 82306; 82607; 83036; 84439; 84443; 85025

== ENCOUNTER 2021-09-04 14:22 | Inpatient (IN) | payer OTHER, MEDICAID ==
[~2021-09-04] VITALS: Ht 157.5 cm; Wt 133.9 kg
[2021-09-04 16:25] LABS: Basophils # (auto) 0 10 ^3/uL (0-0.2); Basophils % (auto) 0.2 % (0.0-2.0); Eosinophils # (auto) 0 10 ^3/uL (0-0.8); Hemoglobin 14.2 g/dL (12.2-16.2); Lymphocytes # (auto) 1.1 10 ^3/uL (0.4-5.4); Lymphocytes % (auto) 10.9 % (10.0-50.0); Mean Corpuscular Hemoglobin 29.5 pg (28.0-32.0); Mean Corpuscular Hgb Conc. 33.8 g/dL (32.0-36.0); Mean Corpuscular Volume 87.4 fL (80.0-100.0); Monocytes # (auto) 0.6 10 ^3/uL (0-1.3); Monocytes % (auto) 5.6 % (0.0-12.0); Neutrophils # (auto) 8.8 10 ^3/uL (1.6-8.6); Neutrophils % (auto) 83.3 % (37.0-80.0); Red Blood Cells 4.81 10^6/uL (4.0-5.20); Red Cell Distribution Width 13.7 % (11.8-14.3); White Blood Cell 10.5 10^3/uL (4.4-10.8)
[2021-09-04 16:46] LABS: Albumin 2.7 g/dL (3.4-5.0); Potassium 4.2 mmol/L (3.5-5.1)
[2021-09-04 16:49] LABS: Bilirubin, Total 0.4 mg/dL (0.2-1.0)
[2021-09-04] MEDS ORDERED: DexAMETHasone SOD PHOS 10MG/1ML VIAL INJ IV ONE (17:45)
[2021-09-04] MEDS ORDERED: ZINC SULFATE 220mg CAP or TAB PO ONE (17:45)
[2021-09-04] MEDS ORDERED: AZITHROMYCIN 500MG/ 250ML 250 ML IV ONE (17:45)
[2021-09-04] MEDS ORDERED: cefTRIAXone 1GM/50ML D5W 50 ML IV ONE (17:45)
[2021-09-04] MEDS ORDERED: ASCORBIC ACID 500 MG TAB PO ONE (17:45)
[2021-09-04] MEDS ORDERED: ONDANSETRON HCL 4 MG/2 ML VIAL IV PRN (20:45)
[2021-09-04] MEDS ORDERED: HYDROcodone-ACET 5/325MG TAB PO PRN (20:45)
[2021-09-04] MEDS ORDERED: MORPHINE SULFATE INJECTION 2 MG/ML SYRG IV PRN (20:45)
[2021-09-04] MEDS ORDERED: REMDESIVIR PER PHARMACY 0 ML IV SCH (20:45)
[2021-09-04] MEDS ORDERED: NITROGLYCERIN 0.4 MG SL TAB SL PRN (20:45)
[2021-09-04] MEDS: GABAPENTIN 300 MG CAP PO SCH (22:00)
[2021-09-04] MEDS: MAGNESIUM OXIDE 400 MG TAB PO SCH (22:00)
[2021-09-04] MEDS: ENOXAPARIN SOD 40 MG/0.4 ML SYRINGE SC SCH (22:00)
[2021-09-05] VITALS (7 sets, daily range): BP systolic 108–137; BP diastolic 64–93
[2021-09-05] MEDS: GABAPENTIN 300 MG CAP PO SCH ×3 (05:21→22:25)
[2021-09-05 06:02] LABS: Basophils # (auto) 0 10 ^3/uL (0-0.2); Basophils % (auto) 0.3 % (0.0-2.0); Eosinophils # (auto) 0 10 ^3/uL (0-0.8); Hematocrit 41.5 % (36.0-46.0); Hemoglobin 13.8 g/dL (12.2-16.2); Lymphocytes # (auto) 0.9 10 ^3/uL (0.4-5.4); Lymphocytes % (auto) 11.9 % (10.0-50.0); Mean Corpuscular Hemoglobin 29.8 pg (28.0-32.0); Mean Corpuscular Hgb Conc. 33.1 g/dL (32.0-36.0); Mean Corpuscular Volume 89.8 fL (80.0-100.0); Monocytes # (auto) 0.3 10 ^3/uL (0-1.3); Monocytes % (auto) 4.6 % (0.0-12.0); Neutrophils # (auto) 6.1 10 ^3/uL (1.6-8.6); Neutrophils % (auto) 83.2 % (37.0-80.0); Nucleated Red Blood Cells % 0.1 %; Red Blood Cells 4.62 10^6/uL (4.0-5.20); White Blood Cell 7.3 10^3/uL (4.4-10.8)
[2021-09-05 06:23] LABS: Albumin 2.4 g/dL (3.4-5.0); BUN/Creatinine Ratio 17.3; Calcium 9.1 mg/dL (8.5-10.1); Potassium 4.5 mmol/L (3.5-5.1)
[2021-09-05 06:25] LABS: Bilirubin, Total 0.3 mg/dL (0.2-1.0); Total Protein 7.5 g/dL (6.4-8.2)
[2021-09-05] MEDS: MAGNESIUM OXIDE 400 MG TAB PO SCH (08:21)
[2021-09-05] MEDS: CHOLECALCIFEROL (VITD3) 2,000 UNIT CAP/TAB PO SCH (08:22)
[2021-09-05] MEDS: PANTOPRAZOLE 40 MG TAB PO SCH (08:23)
[2021-09-05] MEDS: ZINC SULFATE 220mg CAP or TAB PO SCH (08:25)
[2021-09-05] MEDS: ASCORBIC ACID 1,000 MG TAB PO SCH (08:26)
[2021-09-05] MEDS: ENOXAPARIN SOD 40 MG/0.4 ML SYRINGE SC SCH ×2 (08:27→22:25)
[2021-09-05 09:10] LABS: Urine Bacteria FEW /hpf (None Seen); Urine Blood Negative /uL (Negative); Urine Specific Gravity 1.015 (1.001-1.035); Urine WBC 4 /hpf (0 - 5)
[2021-09-05] MEDS ORDERED: hydrOXYchloroQUINE SULFATE 200 MG TAB PO SCH (10:00)
[2021-09-05] MEDS ORDERED: FUROSEMIDE 40 MG TAB PO SCH (10:00)
[2021-09-05] MEDS ORDERED: FUROSEMIDE 20 MG/2 ML VIAL IV ONE (10:30)
[2021-09-05] MEDS: DexAMETHasone SOD PHOS 10MG/1ML VIAL INJ IV SCH (10:38)
[2021-09-05] MEDS: cefTRIAXone 1GM/50ML D5W 50 ML IV SCH (10:38)
[2021-09-05] MEDS: AZITHROMYCIN 500MG/ 250ML 250 ML IV SCH (11:48)
[2021-09-05] MEDS: ACETAMINOPHEN 500 MG TAB PO PRN ×2 (11:49→20:50)
[2021-09-05] MEDS ORDERED: FOLI1TAB6 PO (14:18)
[2021-09-05] MEDS ORDERED: GARL10005 PO (14:18)
[2021-09-05] MEDS ORDERED: DOXY100C2 PO (14:18)
[2021-09-05] MEDS ORDERED: COCO1000 OR (14:19)
[2021-09-05] MEDS ORDERED: REMDESIVIR 200 MG in NS 210ml LOADING DOSE ADULT IV ONE (15:00)
[2021-09-05] MEDS: ALBUTEROL SULF HFA 90MCG INH 200DOSE IN PRN (22:25)
[2021-09-06] MEDS: ACETAMINOPHEN 500 MG TAB PO PRN (04:24)
[2021-09-06 05:00] VITALS: BP 124/62
[2021-09-06] MEDS: ALBUTEROL SULF HFA 90MCG INH 200DOSE IN PRN ×2 (06:20→19:44)
[2021-09-06 06:51] LABS: Albumin 2.4 g/dL (3.4-5.0); Potassium 4.1 mmol/L (3.5-5.1)
[2021-09-06] MEDS: GABAPENTIN 300 MG CAP PO SCH ×3 (06:54→22:15)
[2021-09-06 06:57] LABS: BUN/Creatinine Ratio 23.1; Bilirubin, Total 0.3 mg/dL (0.2-1.0); Total Protein 7.4 g/dL (6.4-8.2)
[2021-09-06] MEDS: CHOLECALCIFEROL (VITD3) 2,000 UNIT CAP/TAB PO SCH (09:00)
[2021-09-06] MEDS: ZINC SULFATE 220mg CAP or TAB PO SCH (09:00)
[2021-09-06] MEDS: ASCORBIC ACID 1,000 MG TAB PO SCH (09:00)
[2021-09-06] MEDS: PANTOPRAZOLE 40 MG TAB PO SCH (09:00)
[2021-09-06] MEDS: cefTRIAXone 1GM/50ML D5W 50 ML IV SCH (09:00)
[2021-09-06] MEDS: ENOXAPARIN SOD 40 MG/0.4 ML SYRINGE SC SCH ×2 (09:01→22:15)
[2021-09-06] MEDS: FUROSEMIDE 40 MG/4 ML VIAL IV SCH (09:01)
[2021-09-06] MEDS: DexAMETHasone SOD PHOS 10MG/1ML VIAL INJ IV SCH (09:01)
[2021-09-06 09:05] VITALS: BP 138/73
[2021-09-06] MEDS: AZITHROMYCIN 500MG/ 250ML 250 ML IV SCH (11:00)
[2021-09-06] MEDS ORDERED: AZITHROMYCIN 250 MG TAB PO ONE (13:00)
[2021-09-06 13:03] VITALS: BP 133/76
[2021-09-06] MEDS: ACETAMINOPHEN/CODEINE#3 (300/30mg) TAB PO PRN ×2 (13:14→19:55)
[2021-09-06] MEDS: REMDESIVIR 100mg 100 MG in SODIUM CHL 0.9% 230 ML IV SCH (15:00)
[2021-09-06 16:37] VITALS: BP 124/70
[2021-09-06] MEDS ORDERED: IOHEXOL 350 MG/ML 100ML IJ ONE (17:11)
[2021-09-06] MEDS: ENSURE CLEAR Mixed Berry 8oz Carton PO SCH (19:19)
[2021-09-06 22:00] VITALS: BP 135/58
[2021-09-06] MEDS: TEMAZEPAM 15 MG CAP PO PRN (22:49)
[2021-09-07] MEDS: ACETAMINOPHEN/CODEINE#3 (300/30mg) TAB PO PRN ×3 (04:10→20:25)
[2021-09-07 05:00] VITALS: BP 117/77
[2021-09-07] MEDS: GABAPENTIN 300 MG CAP PO SCH ×3 (06:05→22:25)
[2021-09-07] MEDS: cefTRIAXone 1GM/50ML D5W 50 ML IV SCH (08:06)
[2021-09-07] MEDS: CHOLECALCIFEROL (VITD3) 2,000 UNIT CAP/TAB PO SCH (08:07)
[2021-09-07] MEDS: ASCORBIC ACID 1,000 MG TAB PO SCH (08:07)
[2021-09-07] MEDS: DexAMETHasone SOD PHOS 10MG/1ML VIAL INJ IV SCH (08:07)
[2021-09-07] MEDS: FUROSEMIDE 40 MG/4 ML VIAL IV SCH (08:07)
[2021-09-07] MEDS: PANTOPRAZOLE 40 MG TAB PO SCH (08:07)
[2021-09-07] MEDS: AZITHROMYCIN 250 MG TAB PO SCH (08:08)
[2021-09-07] MEDS: ENOXAPARIN SOD 40 MG/0.4 ML SYRINGE SC SCH ×2 (08:08→22:25)
[2021-09-07] MEDS: ZINC SULFATE 220mg CAP or TAB PO SCH (08:08)
[2021-09-07 08:59] VITALS: BP 125/69
[2021-09-07] MEDS: ENSURE CLEAR Mixed Berry 8oz Carton PO SCH ×2 (10:41→18:18)
[2021-09-07 12:41] VITALS: BP 114/80
[2021-09-07] MEDS: REMDESIVIR 100mg 100 MG in SODIUM CHL 0.9% 230 ML IV SCH (13:36)
[2021-09-07] MEDS ORDERED: IOHEXOL 350 MG/ML 100ML IJ ONE (15:30)
[2021-09-07 16:15] VITALS: BP 138/78
[2021-09-07 22:17] VITALS: BP 137/79
[2021-09-08] MEDS: TEMAZEPAM 15 MG CAP PO PRN (01:35)
[2021-09-08 02:25] VITALS: BP 137/79
[2021-09-08 05:00] VITALS: BP 123/73
[2021-09-08] MEDS: GABAPENTIN 300 MG CAP PO SCH ×3 (06:35→22:09)
[2021-09-08] MEDS: ACETAMINOPHEN/CODEINE#3 (300/30mg) TAB PO PRN (06:35)
[2021-09-08 06:57] LABS: Hematocrit 40.5 % (36.0-46.0); Hemoglobin 13.5 g/dL (12.2-16.2); Mean Corpuscular Hemoglobin 28.7 pg (28.0-32.0); Mean Corpuscular Hgb Conc. 33.3 g/dL (32.0-36.0); Mean Corpuscular Volume 86.3 fL (80.0-100.0); Red Blood Cells 4.69 10^6/uL (4.0-5.20); Red Cell Distribution Width 13.3 % (11.8-14.3); White Blood Cell 10.8 10^3/uL (4.4-10.8)
[2021-09-08 07:00] LABS: Basophils % (manual) 0 (0.0-2.0); Blast Cells 0; Eosinophils % (manual) 0 (0-7); Metamyelocytes % 0; Promyelocytes % 0; Reactive Lymphocytes 0
[2021-09-08 07:13] LABS: Potassium 3.7 mmol/L (3.5-5.1)
[2021-09-08] MEDS: ALBUTEROL SULF HFA 90MCG INH 200DOSE IN PRN ×2 (07:13→21:46)
[2021-09-08 07:23] LABS: Albumin 2.6 g/dL (3.4-5.0); BUN/Creatinine Ratio 30.7; Bilirubin, Total 0.3 mg/dL (0.2-1.0); Total Protein 7.6 g/dL (6.4-8.2)
[2021-09-08 09:00] VITALS: BP 111/65
[2021-09-08 09:29] LABS: Band Neutrophils % (manual) 1; Lymphocytes % (manual) 24 (10.0-50.0); Monocytes % (manual) 6 (0-12); Myelocytes % 2
[2021-09-08] MEDS: DexAMETHasone SOD PHOS 10MG/1ML VIAL INJ IV SCH (10:18)
[2021-09-08] MEDS: cefTRIAXone 1GM/50ML D5W 50 ML IV SCH (10:18)
[2021-09-08] MEDS: ENSURE CLEAR Mixed Berry 8oz Carton PO SCH ×2 (10:18→18:19)
[2021-09-08] MEDS: PANTOPRAZOLE 40 MG TAB PO SCH (10:19)
[2021-09-08] MEDS: FUROSEMIDE 40 MG/4 ML VIAL IV SCH (10:19)
[2021-09-08] MEDS: CHOLECALCIFEROL (VITD3) 2,000 UNIT CAP/TAB PO SCH (10:19)
[2021-09-08] MEDS: AZITHROMYCIN 250 MG TAB PO SCH (10:19)
[2021-09-08] MEDS: ENOXAPARIN SOD 40 MG/0.4 ML SYRINGE SC SCH ×2 (10:19→22:09)
[2021-09-08 12:38] VITALS: BP 108/67
[2021-09-08] MEDS: REMDESIVIR 100mg 100 MG in SODIUM CHL 0.9% 230 ML IV SCH (15:33)
[2021-09-08 16:58] VITALS: BP 141/79
[2021-09-08 22:00] VITALS: BP 121/64
[2021-09-09 05:00] VITALS: BP 133/61
[2021-09-09] MEDS: GABAPENTIN 300 MG CAP PO SCH ×3 (05:47→21:34)
[2021-09-09] MEDS: ALBUTEROL SULF HFA 90MCG INH 200DOSE IN PRN (07:08)
[2021-09-09 07:24] LABS: Potassium 3.6 mmol/L (3.5-5.1)
[2021-09-09 07:37] LABS: Albumin 2.7 g/dL (3.4-5.0); Bilirubin, Total 0.3 mg/dL (0.2-1.0); Calcium 8.6 mg/dL (8.5-10.1); Total Protein 7.4 g/dL (6.4-8.2)
[2021-09-09] MEDS: ENSURE CLEAR Mixed Berry 8oz Carton PO SCH ×2 (07:50→18:00)
[2021-09-09] MEDS: cefTRIAXone 1GM/50ML D5W 50 ML IV SCH (08:52)
[2021-09-09 09:00] VITALS: BP 112/64
[2021-09-09] MEDS: DexAMETHasone SOD PHOS 10MG/1ML VIAL INJ IV SCH (09:57)
[2021-09-09] MEDS: PANTOPRAZOLE 40 MG TAB PO SCH (09:58)
[2021-09-09] MEDS: FUROSEMIDE 40 MG/4 ML VIAL IV SCH (09:58)
[2021-09-09] MEDS: CHOLECALCIFEROL (VITD3) 2,000 UNIT CAP/TAB PO SCH (09:58)
[2021-09-09] MEDS: ENOXAPARIN SOD 40 MG/0.4 ML SYRINGE SC SCH ×2 (09:59→21:34)
[2021-09-09] MEDS: AZITHROMYCIN 250 MG TAB PO SCH (09:59)
[2021-09-09] MEDS: ACETAMINOPHEN/CODEINE#3 (300/30mg) TAB PO PRN (09:59)
[2021-09-09 13:00] VITALS: BP 98/52
[2021-09-09] MEDS: REMDESIVIR 100mg 100 MG in SODIUM CHL 0.9% 230 ML IV SCH (15:50)
[2021-09-09 17:00] VITALS: BP 115/69
[2021-09-09 22:00] VITALS: BP 135/76
[2021-09-10 04:47] VITALS: BP 118/67
[2021-09-10] MEDS: ACETAMINOPHEN/CODEINE#3 (300/30mg) TAB PO PRN ×2 (05:20→11:20)
[2021-09-10] MEDS: GABAPENTIN 300 MG CAP PO SCH ×2 (05:21→13:17)
[2021-09-10] MEDS: ALBUTEROL SULF HFA 90MCG INH 200DOSE IN PRN (06:03)
[2021-09-10] MEDS: ENSURE CLEAR Mixed Berry 8oz Carton PO SCH (08:00)
[2021-09-10] MEDS: CHOLECALCIFEROL (VITD3) 2,000 UNIT CAP/TAB PO SCH (09:23)
[2021-09-10] MEDS: PANTOPRAZOLE 40 MG TAB PO SCH (09:23)
[2021-09-10] MEDS: AZITHROMYCIN 250 MG TAB PO SCH (09:23)
[2021-09-10] MEDS: cefTRIAXone 1GM/50ML D5W 50 ML IV SCH (09:24)
[2021-09-10] MEDS: ENOXAPARIN SOD 40 MG/0.4 ML SYRINGE SC SCH (09:24)
[2021-09-10] MEDS: DexAMETHasone SOD PHOS 10MG/1ML VIAL INJ IV SCH (09:24)
[2021-09-10] MEDS ORDERED: CHOL1CAP47 PO (12:24)
[2021-09-10] MEDS ORDERED: ALBUAER3 IN (12:24)
== END 2021-09-10 15:38 | disposition home or self-care (01) | DRG 871 ==
LOC: ER 14:22 → TELE 20:37 → TELE-EAST 23:29
PROVIDERS: ADMIT Nurse Practitioner; ATTEND Internal Medicine Pulmonary Disease
PROC: XW033E5 Introduction of Remdesivir Anti-infective into Peripheral Vein, Percutaneous Approach, New Technology Group 5 (ICD-10-PCS; principal; 2021-09-04)
DX: A41.89 Other specified sepsis (principal); U07.1 COVID-19; J96.01 Acute respiratory failure with hypoxia; J12.82 Pneumonia due to coronavirus disease 2019; Z68.43 Body mass index [BMI] 50.0-59.9, adult; I50.9 Heart failure, unspecified; E66.01 Morbid (severe) obesity due to excess calories; G47.30 Sleep apnea, unspecified; G47.33 Obstructive sleep apnea (adult) (pediatric); I11.0 Hypertensive heart disease with heart failure; R65.20 Severe sepsis without septic shock; R19.7 Diarrhea, unspecified; Z88.2 Allergy status to sulfonamides; Z88.8 Allergy status to other drugs, medicaments and biological substances
CPT/HCPCS: 36415; 71045; 71275; 80053; 81001; 82306; 82728; 83605; 83615; 83735; 83880; 84443; 84484; 85007; 85025; 85027; 85379; 86141; 87040; 87426; 93970; 94640; 96365; 96366; 96368; 96375; 97116; 97163; 97530; 99291; G0378; J0696; J1100

== ENCOUNTER → 2022-01-17 | Outpatient (CLI) | payer MEDICARE, MEDICAID ==
[~2022-01-17] MED LIST changes: +ALBUAER3 IN; -CALC-479 PO; -CELE200C PO; +CHOL1CAP47 PO; +COCO1000 OR; +DOXY100C2 PO; -FEBU80TA PO; +FOLI1TAB6 PO; +GARL10005 PO; -GARL200T PO; -HYDR-4188 PO; -KRIL1CAP11 PO; -METO5TAB5 PO; -OMEG1CAP59 PO; -PANT40TA2 PO; -PREG50CA PO; -TORS20TA20 PO
[2022-01-17 11:40] LABS: Folate (Folic Acid) > 24.00 ng/mL (5.38-24)
== END | disposition home or self-care (01) ==
LOC: LAB 10:12
PROVIDERS: ATTEND Internal Medicine
DX: R73.03 Prediabetes (principal); M10.9 Gout, unspecified
CPT/HCPCS: 36415; 82607; 82746; 84443; 84550

== ENCOUNTER → 2022-04-03 | Outpatient (CLI) | payer MEDICAID ==
[2022-04-03 15:56] LABS: Basophils # (auto) 0.3 10 ^3/uL (0-0.2); Eosinophils # (auto) 0.1 10 ^3/uL (0-0.8); Eosinophils % (auto) 1.4 % (0.0-7.0); Hematocrit 42.5 % (36.0-46.0); Hemoglobin 14.3 g/dL (12.2-16.2); Lymphocytes # (auto) 2.4 10 ^3/uL (0.4-5.4); Lymphocytes % (auto) 26.4 % (10.0-50.0); Mean Corpuscular Hemoglobin 29.3 pg (28.0-32.0); Mean Corpuscular Hgb Conc. 33.7 g/dL (32.0-36.0); Mean Corpuscular Volume 87.2 fL (80.0-100.0); Monocytes # (auto) 0.5 10 ^3/uL (0-1.3); Monocytes % (auto) 5.6 % (0.0-12.0); Neutrophils # (auto) 5.9 10 ^3/uL (1.6-8.6); Neutrophils % (auto) 63.6 % (37.0-80.0); Nucleated Red Blood Cells % 0.1 %; Red Blood Cells 4.88 10^6/uL (4.0-5.20); Red Cell Distribution Width 14.6 % (11.8-14.3); White Blood Cell 9.3 10^3/uL (4.4-10.8)
[2022-04-03 16:01] LABS: Urine Bacteria NONE SEEN /hpf (None Seen); Urine Blood 1+ /uL (Negative); Urine Specific Gravity 1.024 (1.001-1.035); Urine WBC 1 /hpf (0 - 5)
[2022-04-03 16:28] LABS: Albumin 3.5 g/dL (3.4-5.0); Calcium 9.6 mg/dL (8.5-10.1); Potassium 4.1 mmol/L (3.5-5.1); Uric Acid 5.7 mg/dL (2.6-6.0)
[2022-04-03 16:34] LABS: BUN/Creatinine Ratio 20.2; Bilirubin, Total 0.7 mg/dL (0.2-1.0); Total Protein 8.2 g/dL (6.4-8.2)
== END | disposition home or self-care (01) ==
LOC: LAB 15:36
PROVIDERS: ATTEND Internal Medicine
DX: R73.03 Prediabetes (principal); E78.5 Hyperlipidemia, unspecified; E53.8 Deficiency of other specified B group vitamins; E79.0 Hyperuricemia without signs of inflammatory arthritis and tophaceous disease
CPT/HCPCS: 36415; 80053; 80061; 81001; 82306; 83036; 84550; 85025

== ENCOUNTER → 2022-04-26 | Outpatient (CLI) | payer MEDICARE, MEDICAID ==
[2022-04-26 15:49] LABS: Urine Bacteria NONE SEEN /hpf (None Seen); Urine Blood Negative /uL (Negative); Urine Specific Gravity 1.023 (1.001-1.035); Urine WBC 3 /hpf (0 - 5)
[2022-04-26 16:11] LABS: Amylase 49 U/L (25-115); Lipase 150 U/L (73-393)
[2022-04-27 05:07] LABS: RPR Non Reactive (Non Reactive)
== END | disposition home or self-care (01) ==
LOC: LAB 15:23
PROVIDERS: ATTEND Internal Medicine
DX: E78.5 Hyperlipidemia, unspecified (principal); E66.9 Obesity, unspecified; R73.03 Prediabetes; R41.3 Other amnesia
CPT/HCPCS: 36415; 81001; 82150; 82607; 83690; 84443; 85652; 86592

== ENCOUNTER 2022-07-29 09:08 | Day surgery (SDC) | payer MEDICARE, MEDICAID ==
[2022-07-26 13:20] LABS: Basophils # (auto) 0.1 10 ^3/uL (0-0.2); Basophils % (auto) 1.2 % (0.0-2.0); Eosinophils # (auto) 0.2 10 ^3/uL (0-0.8); Eosinophils % (auto) 1.8 % (0.0-7.0); Hematocrit 44.9 % (36.0-46.0); Hemoglobin 14.5 g/dL (12.2-16.2); Lymphocytes # (auto) 2.6 10 ^3/uL (0.4-5.4); Lymphocytes % (auto) 27.4 % (10.0-50.0); Mean Corpuscular Hemoglobin 28.7 pg (28.0-32.0); Mean Corpuscular Hgb Conc. 32.3 g/dL (32.0-36.0); Mean Corpuscular Volume 88.7 fL (80.0-100.0); Monocytes # (auto) 0.9 10 ^3/uL (0-1.3); Monocytes % (auto) 9.5 % (0.0-12.0); Neutrophils # (auto) 5.8 10 ^3/uL (1.6-8.6); Neutrophils % (auto) 60.1 % (37.0-80.0); Nucleated Red Blood Cells % 0.1 %; Red Blood Cells 5.06 10^6/uL (4.0-5.20); Red Cell Distribution Width 14.4 % (11.8-14.3); White Blood Cell 9.6 10^3/uL (4.4-10.8)
[2022-07-26 13:43] LABS: INR 1.07 (0.9-1.15); Partial Thromboplastin Time 32.5 sec (24.6-33.4)
[2022-07-26 13:44] LABS: Albumin 3.6 g/dL (3.4-5.0); Calcium 9.5 mg/dL (8.5-10.1); Potassium 3.7 mmol/L (3.5-5.1)
[2022-07-26 13:55] LABS: BUN/Creatinine Ratio 23.2; Bilirubin, Total 0.4 mg/dL (0.2-1.0); Total Protein 7.4 g/dL (6.4-8.2); Urine Bacteria NONE SEEN /hpf (None Seen); Urine Blood 1+ /uL (Negative); Urine Mucus FEW (None Seen); Urine Specific Gravity 1.023 (1.001-1.035); Urine WBC 9 /hpf (0 - 5)
[~2022-07-29] VITALS: Ht 157.5 cm; Wt 135.2 kg
[~2022-07-29 09:08] MED LIST changes: -ACET300T4 PO; +ACET30TA15 PO; -ALPR0.254 PO; -ASCO100076 PO; -ASHW1CAP PO; -CHOL500040 PO; -COCO1000 OR; -COEN100C37 PO; -CYAN100028 SL; -DOXY100C2 PO; -FOLI1TAB6 PO; -GARC500T PO; -GARL10005 PO; -GING550C PO; +MULT1TAB95 PO; -MULT50TA14 PO; -TURM450C PO; -ZINC50TA7 PO; -[UNRECOGNIZED DRUG - CODE] PO
[2022-07-29] MEDS ORDERED: ceFAZolin 1GM/50ML 100 ML IV ONE (09:26)
[2022-07-29] MEDS ORDERED: MIDAZOLAM HCL 2MG/2ML 2ml VIAL (1mg/ml) ONE (10:21)
[2022-07-29] MEDS ORDERED: fentaNYL CITRATE 100 MCG/2 ML VL ONE (10:21)
[2022-07-29] MEDS ORDERED: SUCCINYLCHOLINE CHLORIDE 20 MG/ML 10ML VIAL IV ONE (10:28)
[2022-07-29] MEDS ORDERED: LIDOCAINE 2% JELLY 11ml (GLYDO) ONE (10:37)
[2022-07-29] MEDS ORDERED: ETOMIDATE (2MG/ML) 20ML VIAL IV ONE (10:51)
[2022-07-29] MEDS ORDERED: DexAMETHasone SOD PHOS 10MG/1ML VIAL INJ ONE (10:51)
[2022-07-29] MEDS ORDERED: MORPHINE SULFATE 4 MG/ML SYR/VIAL IV PRN (11:00)
[2022-07-29] MEDS ORDERED: MIDAZOLAM HCL 2MG/2ML 2ml VIAL (1mg/ml) IV PRN (11:00)
[2022-07-29] MEDS ORDERED: ONDANSETRON HCL 4 MG/2 ML VIAL IV PRN (11:00)
[2022-07-29] MEDS ORDERED: ePHEDrine SULFATE 50 MG/ML AMP IV PRN (11:00)
[2022-07-29] MEDS ORDERED: LABETALOL HCL 5 MG/ML 4ML SYRINGE IV PRN (11:00)
[2022-07-29 12:10] VITALS: BP 131/53
== END 2022-07-29 12:25 | disposition home or self-care (01) ==
LOC: SUR 09:08
PROVIDERS: ATTEND Urology
DX: N20.0 Calculus of kidney (principal); I11.0 Hypertensive heart disease with heart failure; I50.22 Chronic systolic (congestive) heart failure; I25.10 Atherosclerotic heart disease of native coronary artery without angina pectoris; E11.9 Type 2 diabetes mellitus without complications; E03.9 Hypothyroidism, unspecified; E66.01 Morbid (severe) obesity due to excess calories; G47.30 Sleep apnea, unspecified; F03.90 Unspecified dementia, unspecified severity, without behavioral disturbance, psychotic disturbance, mood disturbance, and anxiety; Z68.43 Body mass index [BMI] 50.0-59.9, adult; Z20.822 Contact with and (suspected) exposure to COVID-19; Z98.890 Other specified postprocedural states; Z79.899 Other long term (current) drug therapy
CPT/HCPCS: 36415; 50590; 80053; 81001; 85025; 85610; 85730; 87086; C1769; J0330; J0690; J1100; J2250; J2405; J3010; J7030; U0003; A4565

== ENCOUNTER 2022-08-01 17:42 | Inpatient (IN) | payer MEDICARE, MEDICAID ==
[~2022-08-01] VITALS: Ht 157.5 cm; Wt 138.0 kg
[2022-08-01] MEDS ORDERED: SODIUM CHLORIDE 0.9% 1,000 ML IVB ONE (18:00)
[2022-08-01] MEDS ORDERED: KETOROLAC TROMETH 30 MG/ML 1ML VIAL IV ONE (18:00)
[2022-08-01] MEDS ORDERED: ONDANSETRON HCL 4 MG/2 ML VIAL IV ONE (18:00)
[2022-08-01 18:51] LABS: Basophils # (auto) 0.1 10 ^3/uL (0-0.2); Basophils % (auto) 0.6 % (0.0-2.0); Eosinophils # (auto) 0.3 10 ^3/uL (0-0.8); Eosinophils % (auto) 1.9 % (0.0-7.0); Hematocrit 44.6 % (36.0-46.0); Hemoglobin 14.4 g/dL (12.2-16.2); Lymphocytes % (auto) 21.3 % (10.0-50.0); Mean Corpuscular Hemoglobin 28.8 pg (28.0-32.0); Mean Corpuscular Hgb Conc. 32.4 g/dL (32.0-36.0); Monocytes # (auto) 1.3 10 ^3/uL (0-1.3); Monocytes % (auto) 9.1 % (0.0-12.0); Neutrophils # (auto) 9.6 10 ^3/uL (1.6-8.6); Neutrophils % (auto) 67.1 % (37.0-80.0); Nucleated Red Blood Cells % 0.1 %; Red Blood Cells 5.02 10^6/uL (4.0-5.20); Red Cell Distribution Width 14.5 % (11.8-14.3); White Blood Cell 14.3 10^3/uL (4.4-10.8)
[2022-08-01 18:53] LABS: Urine Bacteria NONE SEEN /hpf (None Seen); Urine Blood 2+ /uL (Negative); Urine Specific Gravity 1.025 (1.001-1.035); Urine WBC 45 /hpf (0 - 5)
[2022-08-01 19:10] LABS: Albumin 3.6 g/dL (3.4-5.0); Potassium 4.6 mmol/L (3.5-5.1)
[2022-08-01 19:13] LABS: Bilirubin, Total 0.5 mg/dL (0.2-1.0); Total Protein 7.5 g/dL (6.4-8.2)
[2022-08-01] MEDS ORDERED: TRAM-297 PO (20:03)
[2022-08-01] MEDS ORDERED: CIPR-173 PO (20:03)
[2022-08-01] MEDS ORDERED: cefTRIAXone 1GM/50ML D5W 50 ML IV ONE (20:45)
[2022-08-01] MEDS ORDERED: DOCUSATE SOD 100 MG CAP PO PRN (22:15)
[2022-08-02] VITALS (7 sets, daily range): BP systolic 81–130; BP diastolic 31–73
[2022-08-02] MEDS ORDERED: ESCI-34 PO (04:46)
[2022-08-02] MEDS ORDERED: PREG75CA PO (04:46)
[2022-08-02] MEDS ORDERED: TRAZ100T3 PO (04:46)
[2022-08-02] MEDS ORDERED: LEV50T PO (04:46)
[2022-08-02 07:40] LABS: Basophils # (auto) 0 10 ^3/uL (0-0.2); Basophils % (auto) 0.1 % (0.0-2.0); Eosinophils # (auto) 0.1 10 ^3/uL (0-0.8); Eosinophils % (auto) 0.3 % (0.0-7.0); Hemoglobin 12.4 g/dL (12.2-16.2); Lymphocytes % (auto) 5.2 % (10.0-50.0); Mean Corpuscular Hemoglobin 29.3 pg (28.0-32.0); Mean Corpuscular Hgb Conc. 32.6 g/dL (32.0-36.0); Mean Corpuscular Volume 89.8 fL (80.0-100.0); Monocytes # (auto) 0.5 10 ^3/uL (0-1.3); Monocytes % (auto) 2.8 % (0.0-12.0); Neutrophils # (auto) 16.9 10 ^3/uL (1.6-8.6); Neutrophils % (auto) 91.6 % (37.0-80.0); Red Blood Cells 4.23 10^6/uL (4.0-5.20); Red Cell Distribution Width 14.4 % (11.8-14.3); White Blood Cell 18.5 10^3/uL (4.4-10.8)
[2022-08-02 07:50] LABS: Potassium 4.3 mmol/L (3.5-5.1)
[2022-08-02 07:56] LABS: BUN/Creatinine Ratio 21.8; Calcium 8.2 mg/dL (8.5-10.1)
[2022-08-02] MEDS ORDERED: cefTRIAXone 1GM/50ML D5W 50 ML IV SCH (09:00)
[2022-08-02] MEDS ORDERED: SODIUM CHLORIDE 0.9% 4,100 ML IV ONE ×2 (12:00)
[2022-08-02] MEDS: PIPERACILLIN-TAZOB 3.375GM 100 ML IV SCH ×2 (14:19→22:10)
[2022-08-02] MEDS: SODIUM CHLORIDE 0.9% 1,000 ML IV SCH ×2 (14:46)
[2022-08-02] MEDS: HYDROcodone-ACET 5/325MG TAB PO PRN ×2 (16:49→22:59)
[2022-08-02] MEDS: TAMSULOSIN HYDROCHLORIDE 0.4 MG CAP PO SCH (18:27)
[2022-08-02] MEDS ORDERED: MANNITOL FTV 25% 12.5 GM/50 ML 50 ML IV ONE (19:15)
[2022-08-03 05:00] VITALS: BP 111/82
[2022-08-03] MEDS: PIPERACILLIN-TAZOB 3.375GM 100 ML IV SCH ×3 (05:54→21:11)
[2022-08-03] MEDS: HYDROcodone-ACET 5/325MG TAB PO PRN (05:54)
[2022-08-03] MEDS: SODIUM CHLORIDE 0.9% 1,000 ML IV SCH (07:35)
[2022-08-03 07:41] LABS: Hemoglobin 12.1 g/dL (12.2-16.2)
[2022-08-03 07:43] LABS: Hematocrit 37.1 % (36.0-46.0); Mean Corpuscular Hemoglobin 28.8 pg (28.0-32.0); Mean Corpuscular Hgb Conc. 32.5 g/dL (32.0-36.0); Mean Corpuscular Volume 88.5 fL (80.0-100.0); Red Blood Cells 4.19 10^6/uL (4.0-5.20); Red Cell Distribution Width 14.4 % (11.8-14.3)
[2022-08-03 07:58] LABS: Albumin 2.5 g/dL (3.4-5.0); Calcium 8.1 mg/dL (8.5-10.1); Potassium 4.1 mmol/L (3.5-5.1)
[2022-08-03 08:00] VITALS: BP 91/36
[2022-08-03 08:01] LABS: BUN/Creatinine Ratio 16.8; Total Protein 5.8 g/dL (6.4-8.2)
[2022-08-03 08:24] LABS: White Blood Cell 30.5 10^3/uL (4.4-10.8)
[2022-08-03 08:26] LABS: Basophils % (manual) 0 (0.0-2.0); Blast Cells 0; Eosinophils % (manual) 0 (0-7); Myelocytes % 0; Promyelocytes % 0; Reactive Lymphocytes 0
[2022-08-03 08:43] LABS: Band Neutrophils % (manual) 29; Lymphocytes % (manual) 3 (10.0-50.0); Metamyelocytes % 2; Monocytes % (manual) 3 (0-12)
[2022-08-03] MEDS ORDERED: VANCOMYCIN PER PHARMACY 0 MG IV SCH (09:00)
[2022-08-03 09:14] VITALS: BP 110/80
[2022-08-03] MEDS ORDERED: ENOXAPARIN SOD 40 MG/0.4 ML SYRINGE SC SCH (10:00)
[2022-08-03] MEDS: VANCOMYCIN 1GM/250ML 250 ML IV SCH ×2 (10:41→21:11)
[2022-08-03] MEDS ORDERED: FUROSEMIDE 40 MG/4 ML VIAL IV ONE (12:15)
[2022-08-03 13:00] VITALS: BP 112/44
[2022-08-03] MEDS: ONDANSETRON HCL 4 MG/2 ML VIAL IV PRN ×2 (15:10→20:06)
[2022-08-03] MEDS: TAMSULOSIN HYDROCHLORIDE 0.4 MG CAP PO SCH (17:06)
[2022-08-03] MEDS: ENOXAPARIN SOD 40 MG/0.4 ML SYRINGE SC SCH (21:10)
[2022-08-03 22:00] VITALS: BP 121/72
[2022-08-04] MEDS: ONDANSETRON HCL 4 MG/2 ML VIAL IV PRN ×2 (00:21→10:50)
[2022-08-04] MEDS: MORPHINE SULFATE INJ 2 MG/ml SYRG IV PRN ×2 (00:39→06:04)
[2022-08-04 05:00] VITALS: BP 122/73
[2022-08-04] MEDS: PIPERACILLIN-TAZOB 3.375GM 100 ML IV SCH ×3 (05:21→21:50)
[2022-08-04 07:00] LABS: Basophils # (auto) 0.1 10 ^3/uL (0-0.2); Basophils % (auto) 0.3 % (0.0-2.0); Eosinophils # (auto) 0.1 10 ^3/uL (0-0.8); Eosinophils % (auto) 0.3 % (0.0-7.0); Hematocrit 35.3 % (36.0-46.0); Hemoglobin 11.5 g/dL (12.2-16.2); Lymphocytes % (auto) 4.5 % (10.0-50.0); Mean Corpuscular Hemoglobin 28.9 pg (28.0-32.0); Mean Corpuscular Hgb Conc. 32.6 g/dL (32.0-36.0); Mean Corpuscular Volume 88.5 fL (80.0-100.0); Monocytes # (auto) 1.4 10 ^3/uL (0-1.3); Neutrophils # (auto) 20.8 10 ^3/uL (1.6-8.6); Neutrophils % (auto) 88.9 % (37.0-80.0); Red Blood Cells 3.98 10^6/uL (4.0-5.20); Red Cell Distribution Width 14.2 % (11.8-14.3); White Blood Cell 23.3 10^3/uL (4.4-10.8)
[2022-08-04 07:09] LABS: Albumin 2.3 g/dL (3.4-5.0); Potassium 3.2 mmol/L (3.5-5.1)
[2022-08-04 07:17] LABS: BUN/Creatinine Ratio 27.4; Bilirubin, Total 0.5 mg/dL (0.2-1.0); Calcium 8.4 mg/dL (8.5-10.1); Total Protein 6.4 g/dL (6.4-8.2)
[2022-08-04] MEDS: FUROSEMIDE 40 MG/4 ML VIAL IV SCH ×2 (09:42→10:51)
[2022-08-04] MEDS: VANCOMYCIN 1GM/250ML 250 ML IV SCH ×2 (09:42→10:49)
[2022-08-04] MEDS: ENOXAPARIN SOD 40 MG/0.4 ML SYRINGE SC SCH ×3 (09:43→21:51)
[2022-08-04] MEDS ORDERED: PREGABALIN CAPSULE 75 MG CAP PO ONE (10:45)
[2022-08-04] MEDS: CITALOPRAM HYDROBR 20 MG TAB PO SCH (11:08)
[2022-08-04] MEDS: ACETAMINOPHEN/CODEINE#3 (300/30mg) TAB PO PRN ×2 (11:09→21:53)
[2022-08-04] MEDS: LOPERAMIDE HCL 2 MG CAP/TAB PO PRN ×3 (11:19→21:50)
[2022-08-04] MEDS: POTASSIUM EFFERVESENT TAB 25 MEQ PO SCH ×2 (11:41→21:50)
[2022-08-04 13:00] VITALS: BP 98/72
[2022-08-04] MEDS: GABAPENTIN 300 MG CAP PO SCH ×2 (14:09→21:50)
[2022-08-04 17:00] VITALS: BP 104/57
[2022-08-04] MEDS: TAMSULOSIN HYDROCHLORIDE 0.4 MG CAP PO SCH (18:04)
[2022-08-04] MEDS: traZODone HCL 50 MG TAB PO SCH (21:50)
[2022-08-04 22:00] VITALS: BP 111/53
[2022-08-04] MEDS ORDERED: diphenhdrAMINE HCL 25 MG CAP PO ONE (22:45)
[2022-08-05] MEDS: VANCOMYCIN 1GM/250ML 250 ML IV SCH ×2 (01:00→11:16)
[2022-08-05 05:00] VITALS: BP 110/56
[2022-08-05] MEDS: LOPERAMIDE HCL 2 MG CAP/TAB PO PRN ×3 (05:32→20:22)
[2022-08-05] MEDS: LEVOTHYROXINE SODIUM 25 MCG TAB PO SCH (05:32)
[2022-08-05] MEDS: GABAPENTIN 300 MG CAP PO SCH ×3 (05:32→21:39)
[2022-08-05] MEDS: PIPERACILLIN-TAZOB 3.375GM 100 ML IV SCH (05:32)
[2022-08-05] MEDS: ACETAMINOPHEN/CODEINE#3 (300/30mg) TAB PO PRN (05:42)
[2022-08-05 08:00] VITALS: BP 121/4
[2022-08-05 08:27] VITALS: BP 121/74
[2022-08-05] MEDS: POTASSIUM EFFERVESENT TAB 25 MEQ PO SCH (11:13)
[2022-08-05] MEDS: CITALOPRAM HYDROBR 20 MG TAB PO SCH (11:13)
[2022-08-05] MEDS: FUROSEMIDE 40 MG/4 ML VIAL IV SCH (11:14)
[2022-08-05] MEDS: MORPHINE SULFATE INJ 2 MG/ml SYRG IV PRN (11:15)
[2022-08-05] MEDS: ENOXAPARIN SOD 40 MG/0.4 ML SYRINGE SC SCH ×2 (11:16→21:39)
[2022-08-05 12:30] VITALS: BP 95/49
[2022-08-05] MEDS: diphenhdrAMINE HCL 25 MG CAP PO PRN ×2 (14:50→21:39)
[2022-08-05] MEDS: TAMSULOSIN HYDROCHLORIDE 0.4 MG CAP PO SCH (18:30)
[2022-08-05] MEDS: traZODone HCL 50 MG TAB PO SCH (21:39)
[2022-08-05 22:00] VITALS: BP 97/50
[2022-08-06] MEDS: GABAPENTIN 300 MG CAP PO SCH ×3 (05:39→21:52)
[2022-08-06] MEDS: LEVOTHYROXINE SODIUM 25 MCG TAB PO SCH (05:40)
[2022-08-06] MEDS: ACETAMINOPHEN/CODEINE#3 (300/30mg) TAB PO PRN (05:53)
[2022-08-06] MEDS: LOPERAMIDE HCL 2 MG CAP/TAB PO PRN ×2 (05:53→18:28)
[2022-08-06 06:00] VITALS: BP 110/60
[2022-08-06 06:39] LABS: Basophils # (auto) 0.1 10 ^3/uL (0-0.2); Basophils % (auto) 0.5 % (0.0-2.0); Eosinophils # (auto) 0.4 10 ^3/uL (0-0.8); Eosinophils % (auto) 2.6 % (0.0-7.0); Hematocrit 31.7 % (36.0-46.0); Hemoglobin 10.7 g/dL (12.2-16.2); Lymphocytes % (auto) 14.2 % (10.0-50.0); Mean Corpuscular Hemoglobin 29.3 pg (28.0-32.0); Mean Corpuscular Hgb Conc. 33.7 g/dL (32.0-36.0); Mean Corpuscular Volume 87.2 fL (80.0-100.0); Monocytes # (auto) 1.3 10 ^3/uL (0-1.3); Monocytes % (auto) 9.2 % (0.0-12.0); Neutrophils # (auto) 10.1 10 ^3/uL (1.6-8.6); Neutrophils % (auto) 73.5 % (37.0-80.0); Nucleated Red Blood Cells % 0.1 %; Red Blood Cells 3.64 10^6/uL (4.0-5.20); Red Cell Distribution Width 14.3 % (11.8-14.3); White Blood Cell 13.8 10^3/uL (4.4-10.8)
[2022-08-06 06:57] LABS: BUN/Creatinine Ratio 24.6; Calcium 8.4 mg/dL (8.5-10.1); Potassium 3.8 mmol/L (3.5-5.1)
[2022-08-06 09:00] VITALS: BP 94/51
[2022-08-06] MEDS ORDERED: FUROSEMIDE 40 MG TAB PO SCH (10:00)
[2022-08-06] MEDS ORDERED: POTASSIUM CHL 20 Meq TABLET PO SCH (10:00)
[2022-08-06] MEDS: levoFLOXacin 500MG 100 ML IV SCH (11:26)
[2022-08-06] MEDS: ENOXAPARIN SOD 40 MG/0.4 ML SYRINGE SC SCH (11:27)
[2022-08-06] MEDS: CITALOPRAM HYDROBR 20 MG TAB PO SCH (11:27)
[2022-08-06] MEDS: MORPHINE SULFATE INJ 2 MG/ml SYRG IV PRN (11:33)
[2022-08-06 13:00] VITALS: BP 110/66
[2022-08-06 17:00] VITALS: BP 98/42
[2022-08-06] MEDS: PHENAZOPYRIDINE HCL 100 MG TAB PO SCH (18:28)
[2022-08-06] MEDS: TAMSULOSIN HYDROCHLORIDE 0.4 MG CAP PO SCH (18:28)
[2022-08-06] MEDS: traZODone HCL 50 MG TAB PO SCH (21:52)
[2022-08-06] MEDS: diphenhdrAMINE HCL 25 MG CAP PO PRN (21:53)
[2022-08-06 22:00] VITALS: BP 94/51
[2022-08-07] MEDS: LOPERAMIDE HCL 2 MG CAP/TAB PO PRN ×5 (00:43→22:38)
[2022-08-07 05:00] VITALS: BP 95/51
[2022-08-07] MEDS: GABAPENTIN 300 MG CAP PO SCH ×3 (05:35→22:38)
[2022-08-07] MEDS: LEVOTHYROXINE SODIUM 25 MCG TAB PO SCH (05:36)
[2022-08-07 06:55] LABS: Basophils # (auto) 0.1 10 ^3/uL (0-0.2); Basophils % (auto) 0.6 % (0.0-2.0); Eosinophils # (auto) 0.3 10 ^3/uL (0-0.8); Eosinophils % (auto) 1.9 % (0.0-7.0); Hematocrit 30.5 % (36.0-46.0); Hemoglobin 9.7 g/dL (12.2-16.2); Lymphocytes # (auto) 2.4 10 ^3/uL (0.4-5.4); Mean Corpuscular Hemoglobin 28.2 pg (28.0-32.0); Mean Corpuscular Volume 88.3 fL (80.0-100.0); Monocytes % (auto) 6.5 % (0.0-12.0); Neutrophils # (auto) 11.5 10 ^3/uL (1.6-8.6); Red Blood Cells 3.45 10^6/uL (4.0-5.20); Red Cell Distribution Width 14.6 % (11.8-14.3); White Blood Cell 15.3 10^3/uL (4.4-10.8)
[2022-08-07 07:09] LABS: Calcium 8.2 mg/dL (8.5-10.1); Potassium 3.6 mmol/L (3.5-5.1)
[2022-08-07 07:11] LABS: BUN/Creatinine Ratio 17.5
[2022-08-07] MEDS: PHENAZOPYRIDINE HCL 100 MG TAB PO SCH ×3 (08:30→18:54)
[2022-08-07 08:47] VITALS: BP 105/51
[2022-08-07] MEDS: levoFLOXacin 500MG 100 ML IV SCH (09:51)
[2022-08-07] MEDS: ENOXAPARIN SOD 40 MG/0.4 ML SYRINGE SC SCH (09:51)
[2022-08-07] MEDS: CITALOPRAM HYDROBR 20 MG TAB PO SCH (09:51)
[2022-08-07] MEDS: ACETAMINOPHEN/CODEINE#3 (300/30mg) TAB PO PRN ×2 (11:12→18:55)
[2022-08-07] MEDS ORDERED: guaiFENesin 200 MG/10 ML UD PO PRN (12:00)
[2022-08-07] MEDS ORDERED: metroNIDAZOLE 500 MG TAB PO ONE (12:00)
[2022-08-07] MEDS ORDERED: TEMAZEPAM 15 MG CAP PO PRN (12:00)
[2022-08-07] MEDS: PIPERACILLIN-TAZOB 3.375GM 100 ML IV ONE ×2 (12:24→14:25)
[2022-08-07] MEDS: FLORASTOR (S. BOULARDII) 250 MG CAP PO SCH (12:24)
[2022-08-07 12:49] VITALS: BP 97/46
[2022-08-07] MEDS ORDERED: POTASSIUM CHL 20 Meq TABLET PO ONE (14:45)
[2022-08-07] MEDS ORDERED: FUROSEMIDE 20 MG/2 ML VIAL IV ONE (14:45)
[2022-08-07 16:00] VITALS: BP 112/54
[2022-08-07] MEDS: TAMSULOSIN HYDROCHLORIDE 0.4 MG CAP PO SCH (18:54)
[2022-08-07] MEDS: PIPERACILLIN-TAZOB 3.375GM 100 ML IV SCH (20:26)
[2022-08-07 22:00] VITALS: BP 113/54
[2022-08-07] MEDS: traZODone HCL 50 MG TAB PO SCH (22:39)
[2022-08-07] MEDS: metroNIDAZOLE 500 MG TAB PO SCH (22:43)
[2022-08-08] VITALS (8 sets, daily range): BP systolic 106–134; BP diastolic 52–85
[2022-08-08] MEDS: PIPERACILLIN-TAZOB 3.375GM 100 ML IV SCH ×3 (04:52→20:58)
[2022-08-08] MEDS: LOPERAMIDE HCL 2 MG CAP/TAB PO PRN ×2 (04:54→22:25)
[2022-08-08] MEDS: LEVOTHYROXINE SODIUM 25 MCG TAB PO SCH (06:12)
[2022-08-08] MEDS: GABAPENTIN 300 MG CAP PO SCH ×3 (06:12→18:58)
[2022-08-08] MEDS: ACETAMINOPHEN/CODEINE#3 (300/30mg) TAB PO PRN ×2 (06:12→18:57)
[2022-08-08] MEDS: metroNIDAZOLE 500 MG TAB PO SCH ×3 (06:12→22:24)
[2022-08-08 06:42] LABS: Hemoglobin 9.5 g/dL (12.2-16.2); Mean Corpuscular Hemoglobin 27.8 pg (28.0-32.0); Mean Corpuscular Hgb Conc. 31.7 g/dL (32.0-36.0); Mean Corpuscular Volume 87.6 fL (80.0-100.0); Red Blood Cells 3.43 10^6/uL (4.0-5.20); Red Cell Distribution Width 14.1 % (11.8-14.3); White Blood Cell 18.6 10^3/uL (4.4-10.8)
[2022-08-08 06:47] LABS: Calcium 8.2 mg/dL (8.5-10.1); Potassium 3.8 mmol/L (3.5-5.1)
[2022-08-08 06:50] LABS: BUN/Creatinine Ratio 17.4
[2022-08-08 06:53] LABS: Basophils % (manual) 0 (0.0-2.0); Blast Cells 0; Eosinophils % (manual) 0 (0-7); Promyelocytes % 0; Reactive Lymphocytes 0
[2022-08-08] MEDS: PHENAZOPYRIDINE HCL 100 MG TAB PO SCH ×2 (08:13→11:46)
[2022-08-08 08:50] LABS: Band Neutrophils % (manual) 5; Lymphocytes % (manual) 14 (10.0-50.0); Metamyelocytes % 3; Monocytes % (manual) 4 (0-12); Myelocytes % 1
[2022-08-08] MEDS: CITALOPRAM HYDROBR 20 MG TAB PO SCH (09:53)
[2022-08-08] MEDS: FLORASTOR (S. BOULARDII) 250 MG CAP PO SCH (09:53)
[2022-08-08] MEDS: ENOXAPARIN SOD 40 MG/0.4 ML SYRINGE SC SCH (09:53)
[2022-08-08] MEDS ORDERED: NYSTATIN (MOUTH-THROAT) 500,000 UNITS/5 ML SUSP MT ONE (12:45)
[2022-08-08] MEDS ORDERED: FLUCONAZOLE 200MG/100ML 100 ML IV ONE (12:45)
[2022-08-08] MEDS ORDERED: NYSTATIN TOPICAL POWDER 15GM TOP ONE (12:45)
[2022-08-08] MEDS: NYSTATIN TOPICAL POWDER 15GM TOP SCH ×2 (12:49→19:00)
[2022-08-08] MEDS: NYSTATIN (MOUTH-THROAT) 500,000 UNITS/5 ML SUSP MT SCH ×2 (18:58→22:24)
[2022-08-08] MEDS: TAMSULOSIN HYDROCHLORIDE 0.4 MG CAP PO SCH (18:58)
[2022-08-08] MEDS ORDERED: NYSTATIN TOPICAL POWDER 15GM TOP SCH (22:00)
[2022-08-08] MEDS: traZODone HCL 50 MG TAB PO SCH (22:24)
[2022-08-08] MEDS: diphenhdrAMINE HCL 25 MG CAP PO PRN (22:25)
[2022-08-09 03:27] LABS: Urine Bacteria FEW /hpf (None Seen); Urine Blood 1+ /uL (Negative); Urine Specific Gravity 1.008 (1.001-1.035); Urine WBC 14 /hpf (0 - 5)
[2022-08-09] MEDS: metroNIDAZOLE 500 MG TAB PO SCH (05:02)
[2022-08-09] MEDS: PIPERACILLIN-TAZOB 3.375GM 100 ML IV SCH ×3 (05:02→20:36)
[2022-08-09] MEDS: NYSTATIN (MOUTH-THROAT) 500,000 UNITS/5 ML SUSP MT SCH ×4 (05:02→21:37)
[2022-08-09] MEDS: GABAPENTIN 300 MG CAP PO SCH ×3 (05:03→21:37)
[2022-08-09 05:34] LABS: Hemoglobin 9.9 g/dL (12.2-16.2); Mean Corpuscular Hemoglobin 28.1 pg (28.0-32.0); Red Blood Cells 3.53 10^6/uL (4.0-5.20); Red Cell Distribution Width 14.6 % (11.8-14.3); White Blood Cell 16.2 10^3/uL (4.4-10.8)
[2022-08-09 05:55] VITALS: BP 106/46
[2022-08-09 05:55] LABS: Blast Cells 0; Myelocytes % 0; Promyelocytes % 0; Reactive Lymphocytes 0
[2022-08-09 06:03] LABS: Potassium 4.2 mmol/L (3.5-5.1)
[2022-08-09] MEDS: LEVOTHYROXINE SODIUM 25 MCG TAB PO SCH (06:10)
[2022-08-09 06:12] LABS: Albumin 2.2 g/dL (3.4-5.0); BUN/Creatinine Ratio 16.9; Bilirubin, Total 0.4 mg/dL (0.2-1.0); Calcium 8.3 mg/dL (8.5-10.1); Total Protein 5.9 g/dL (6.4-8.2)
[2022-08-09] MEDS: LOPERAMIDE HCL 2 MG CAP/TAB PO PRN ×3 (06:16→20:47)
[2022-08-09] MEDS: ONDANSETRON HCL 4 MG/2 ML VIAL IV PRN ×2 (06:41→18:32)
[2022-08-09 08:30] VITALS: BP 110/58
[2022-08-09 08:57] VITALS: BP_SYST 105; BP_SYST 111; BP_DIAS 43; BP_DIAS 51
[2022-08-09] MEDS: FLORASTOR (S. BOULARDII) 250 MG CAP PO SCH (09:48)
[2022-08-09] MEDS: ENOXAPARIN SOD 40 MG/0.4 ML SYRINGE SC SCH (09:48)
[2022-08-09] MEDS: CITALOPRAM HYDROBR 20 MG TAB PO SCH (09:49)
[2022-08-09] MEDS: FLUCONAZOLE 200MG/100ML 100 ML IV SCH (09:51)
[2022-08-09] MEDS: NYSTATIN TOPICAL POWDER 15GM TOP SCH ×2 (09:55→21:38)
[2022-08-09 13:00] VITALS: BP 110/58
[2022-08-09 14:11] LABS: Band Neutrophils % (manual) 4; Basophils % (manual) 1 (0.0-2.0); Eosinophils % (manual) 2 (0-7); Lymphocytes % (manual) 21 (10.0-50.0); Metamyelocytes % 1; Monocytes % (manual) 9 (0-12)
[2022-08-09] MEDS: TAMSULOSIN HYDROCHLORIDE 0.4 MG CAP PO SCH (17:15)
[2022-08-09 20:00] VITALS: BP 117/69
[2022-08-09] MEDS: traZODone HCL 50 MG TAB PO SCH (21:37)
[2022-08-09 22:00] VITALS: BP 117/69
[2022-08-10] MEDS: LOPERAMIDE HCL 2 MG CAP/TAB PO PRN (00:38)
[2022-08-10] MEDS: ONDANSETRON HCL 4 MG/2 ML VIAL IV PRN ×2 (00:38→17:08)
[2022-08-10] MEDS: PIPERACILLIN-TAZOB 3.375GM 100 ML IV SCH ×3 (03:00→21:37)
[2022-08-10 04:48] LABS: Hematocrit 28.9 % (36.0-46.0); Hemoglobin 9.4 g/dL (12.2-16.2); Mean Corpuscular Hemoglobin 28.8 pg (28.0-32.0); Mean Corpuscular Hgb Conc. 32.5 g/dL (32.0-36.0); Mean Corpuscular Volume 88.6 fL (80.0-100.0); Red Blood Cells 3.26 10^6/uL (4.0-5.20); Red Cell Distribution Width 14.6 % (11.8-14.3); White Blood Cell 13.7 10^3/uL (4.4-10.8)
[2022-08-10 05:00] VITALS: BP 96/49
[2022-08-10 05:03] LABS: Band Neutrophils % (manual) 0; Basophils % (manual) 0 (0.0-2.0); Blast Cells 0; Promyelocytes % 0; Reactive Lymphocytes 0
[2022-08-10 05:06] LABS: Calcium 8.4 mg/dL (8.5-10.1)
[2022-08-10 05:08] LABS: BUN/Creatinine Ratio 17.2
[2022-08-10] MEDS: GABAPENTIN 300 MG CAP PO SCH ×3 (06:17→21:37)
[2022-08-10] MEDS: NYSTATIN (MOUTH-THROAT) 500,000 UNITS/5 ML SUSP MT SCH ×4 (06:17→21:37)
[2022-08-10] MEDS: LEVOTHYROXINE SODIUM 25 MCG TAB PO SCH (06:19)
[2022-08-10 07:47] LABS: Eosinophils % (manual) 5 (0-7); Lymphocytes % (manual) 27 (10.0-50.0); Metamyelocytes % 2; Monocytes % (manual) 4 (0-12); Myelocytes % 2
[2022-08-10 09:00] VITALS: BP 112/55
[2022-08-10] MEDS: FLORASTOR (S. BOULARDII) 250 MG CAP PO SCH (09:55)
[2022-08-10] MEDS: CITALOPRAM HYDROBR 20 MG TAB PO SCH (09:55)
[2022-08-10] MEDS: ENOXAPARIN SOD 40 MG/0.4 ML SYRINGE SC SCH (09:55)
[2022-08-10] MEDS: FLUCONAZOLE 200MG/100ML 100 ML IV SCH (09:56)
[2022-08-10] MEDS: NYSTATIN TOPICAL POWDER 15GM TOP SCH ×2 (09:56→21:43)
[2022-08-10 13:08] VITALS: BP 112/57
[2022-08-10] MEDS: ACETAMINOPHEN/CODEINE#3 (300/30mg) TAB PO PRN (14:17)
[2022-08-10 17:00] VITALS: BP_SYST 111; BP_SYST 115; BP_DIAS 61; BP_DIAS 64
[2022-08-10] MEDS: LOPERAMIDE HCL 2 MG CAP/TAB PO SCH ×2 (17:08→21:37)
[2022-08-10] MEDS: TAMSULOSIN HYDROCHLORIDE 0.4 MG CAP PO SCH (18:45)
[2022-08-10] MEDS: traZODone HCL 50 MG TAB PO SCH (21:43)
[2022-08-10 22:00] VITALS: BP 116/41
[2022-08-11] MEDS: PIPERACILLIN-TAZOB 3.375GM 100 ML IV SCH ×3 (04:24→22:22)
[2022-08-11 05:00] VITALS: BP 111/49
[2022-08-11] MEDS: NYSTATIN (MOUTH-THROAT) 500,000 UNITS/5 ML SUSP MT SCH ×4 (06:36→22:31)
[2022-08-11] MEDS: LEVOTHYROXINE SODIUM 25 MCG TAB PO SCH (06:37)
[2022-08-11] MEDS: GABAPENTIN 300 MG CAP PO SCH ×3 (06:37→22:22)
[2022-08-11] MEDS: ENOXAPARIN SOD 40 MG/0.4 ML SYRINGE SC SCH (08:40)
[2022-08-11] MEDS: LOPERAMIDE HCL 2 MG CAP/TAB PO SCH ×3 (08:40→22:22)
[2022-08-11] MEDS: FLORASTOR (S. BOULARDII) 250 MG CAP PO SCH (08:40)
[2022-08-11] MEDS: NYSTATIN TOPICAL POWDER 15GM TOP SCH ×2 (08:40→22:31)
[2022-08-11] MEDS: FLUCONAZOLE 200MG/100ML 100 ML IV SCH (08:41)
[2022-08-11] MEDS: CITALOPRAM HYDROBR 20 MG TAB PO SCH (08:41)
[2022-08-11 09:00] VITALS: BP 100/53
[2022-08-11 13:00] VITALS: BP 124/40
[2022-08-11 17:00] VITALS: BP 114/61
[2022-08-11] MEDS: TAMSULOSIN HYDROCHLORIDE 0.4 MG CAP PO SCH (17:57)
[2022-08-11 22:00] VITALS: BP_SYST 113; BP_SYST 99; BP_DIAS 65; BP_DIAS 66
[2022-08-11] MEDS: traZODone HCL 50 MG TAB PO SCH (22:22)
[2022-08-12] MEDS: GABAPENTIN 300 MG CAP PO SCH ×3 (05:08→21:31)
[2022-08-12] MEDS: PIPERACILLIN-TAZOB 3.375GM 100 ML IV SCH ×2 (05:08→12:00)
[2022-08-12] MEDS: NYSTATIN (MOUTH-THROAT) 500,000 UNITS/5 ML SUSP MT SCH ×4 (05:08→21:25)
[2022-08-12] MEDS: LOPERAMIDE HCL 2 MG CAP/TAB PO SCH ×4 (05:08→21:30)
[2022-08-12] MEDS: ACETAMINOPHEN/CODEINE#3 (300/30mg) TAB PO PRN ×2 (05:20→11:39)
[2022-08-12 05:25] VITALS: BP 116/59
[2022-08-12] MEDS: LEVOTHYROXINE SODIUM 25 MCG TAB PO SCH (06:03)
[2022-08-12 08:30] VITALS: BP 110/54
[2022-08-12] MEDS: FLUCONAZOLE 200MG/100ML 100 ML IV SCH (11:38)
[2022-08-12] MEDS: ENOXAPARIN SOD 40 MG/0.4 ML SYRINGE SC SCH (11:38)
[2022-08-12] MEDS: diphenhdrAMINE HCL 25 MG CAP PO PRN (11:38)
[2022-08-12] MEDS: CITALOPRAM HYDROBR 20 MG TAB PO SCH (11:39)
[2022-08-12] MEDS: FLORASTOR (S. BOULARDII) 250 MG CAP PO SCH (11:39)
[2022-08-12] MEDS: NYSTATIN TOPICAL POWDER 15GM TOP SCH ×2 (11:40→21:56)
[2022-08-12 12:30] VITALS: BP 134/65
[2022-08-12 17:09] VITALS: BP 115/50
[2022-08-12] MEDS: TAMSULOSIN HYDROCHLORIDE 0.4 MG CAP PO SCH (18:24)
[2022-08-12] MEDS: traZODone HCL 50 MG TAB PO SCH (21:27)
[2022-08-12] MEDS: CHOLESTYRAMINE 4 GM POWDER PO SCH (21:30)
[2022-08-12] MEDS: HYDROCORTISONE ACET 25 MG RECTAL SUPP PR SCH (21:31)
[2022-08-12 22:00] VITALS: BP_SYST 107; BP_SYST 132; BP_DIAS 60; BP_DIAS 69
[2022-08-13 05:00] VITALS: BP 95/40
[2022-08-13 06:07] LABS: Basophils # (auto) 0.1 10 ^3/uL (0-0.2); Eosinophils # (auto) 0.2 10 ^3/uL (0-0.8); Hematocrit 30.6 % (36.0-46.0); Hemoglobin 9.9 g/dL (12.2-16.2); Lymphocytes # (auto) 2.6 10 ^3/uL (0.4-5.4); Mean Corpuscular Hgb Conc. 32.4 g/dL (32.0-36.0)
[2022-08-13 06:13] LABS: Basophils % (auto) 0.7 % (0.0-2.0); Eosinophils % (auto) 1.6 % (0.0-7.0); Lymphocytes % (auto) 21.1 % (10.0-50.0); Mean Corpuscular Hemoglobin 28.7 pg (28.0-32.0); Mean Corpuscular Volume 88.6 fL (80.0-100.0); Monocytes # (auto) 0.9 10 ^3/uL (0-1.3); Monocytes % (auto) 7.3 % (0.0-12.0); Neutrophils # (auto) 8.5 10 ^3/uL (1.6-8.6); Neutrophils % (auto) 69.3 % (37.0-80.0); Nucleated Red Blood Cells % 0.1 %; Red Blood Cells 3.46 10^6/uL (4.0-5.20); Red Cell Distribution Width 14.6 % (11.8-14.3); White Blood Cell 12.2 10^3/uL (4.4-10.8)
[2022-08-13 06:22] LABS: Anion Gap 6 (5-15); Carbon Dioxide 30 mmol/L (21-32); Chloride 105 mmol/L (98-107); Potassium 4.5 mmol/L (3.5-5.1); Sodium 141 mmol/L (136-145)
[2022-08-13 06:23] LABS: Blood Urea Nitrogen 15 mg/dL (7-18); Calcium 8.9 mg/dL (8.5-10.1); GFR African American 66 mL/min; GFR Non-African American 55 mL/min; Glucose 90 mg/dL (74-106)
[2022-08-13] MEDS: LOPERAMIDE HCL 2 MG CAP/TAB PO SCH ×4 (06:57→22:07)
[2022-08-13] MEDS: LEVOTHYROXINE SODIUM 25 MCG TAB PO SCH (06:58)
[2022-08-13] MEDS: NYSTATIN (MOUTH-THROAT) 500,000 UNITS/5 ML SUSP MT SCH ×4 (06:58→22:07)
[2022-08-13] MEDS: GABAPENTIN 300 MG CAP PO SCH ×3 (06:58→22:07)
[2022-08-13 08:00] VITALS: BP 114/59
[2022-08-13 09:00] VITALS: BP 114/59
[2022-08-13] MEDS: FLUCONAZOLE 200MG/100ML 100 ML IV SCH (10:24)
[2022-08-13] MEDS: ENOXAPARIN SOD 40 MG/0.4 ML SYRINGE SC SCH (10:28)
[2022-08-13] MEDS: CITALOPRAM HYDROBR 20 MG TAB PO SCH (10:28)
[2022-08-13] MEDS: HYDROCORTISONE ACET 25 MG RECTAL SUPP PR SCH ×2 (10:28→22:07)
[2022-08-13] MEDS: levoFLOXacin 500 MG TAB PO SCH (10:28)
[2022-08-13] MEDS: NYSTATIN TOPICAL POWDER 15GM TOP SCH ×2 (10:29→22:35)
[2022-08-13] MEDS: CHOLESTYRAMINE 4 GM POWDER PO SCH ×2 (10:29→22:06)
[2022-08-13] MEDS: ACETAMINOPHEN/CODEINE#3 (300/30mg) TAB PO PRN ×2 (10:35→17:52)
[2022-08-13] MEDS: FLORASTOR (S. BOULARDII) 250 MG CAP PO SCH (10:35)
[2022-08-13] MEDS ORDERED: CHOLESTYRAMINE 4 GM POWDER PO SCH (11:00)
[2022-08-13 13:00] VITALS: BP 125/59
[2022-08-13 17:00] VITALS: BP 133/60
[2022-08-13] MEDS: TAMSULOSIN HYDROCHLORIDE 0.4 MG CAP PO SCH (17:50)
[2022-08-13 20:00] VITALS: BP 138/56
[2022-08-13] MEDS: traZODone HCL 50 MG TAB PO SCH (22:07)
[2022-08-14] VITALS (7 sets, daily range): BP systolic 99–150; BP diastolic 50–98
[2022-08-14] MEDS: LEVOTHYROXINE SODIUM 25 MCG TAB PO SCH (06:16)
[2022-08-14] MEDS: GABAPENTIN 300 MG CAP PO SCH ×3 (06:16→21:05)
[2022-08-14] MEDS: LOPERAMIDE HCL 2 MG CAP/TAB PO SCH ×4 (06:16→21:05)
[2022-08-14] MEDS: ACETAMINOPHEN/CODEINE#3 (300/30mg) TAB PO PRN ×2 (06:22→21:03)
[2022-08-14] MEDS: NYSTATIN (MOUTH-THROAT) 500,000 UNITS/5 ML SUSP MT SCH ×4 (06:22→21:03)
[2022-08-14] MEDS: FLUCONAZOLE 200MG/100ML 100 ML IV SCH (10:36)
[2022-08-14] MEDS: CHOLESTYRAMINE 4 GM POWDER PO SCH ×2 (10:37→21:05)
[2022-08-14] MEDS: HYDROCORTISONE ACET 25 MG RECTAL SUPP PR SCH ×2 (10:37→21:05)
[2022-08-14] MEDS: levoFLOXacin 500 MG TAB PO SCH (10:37)
[2022-08-14] MEDS: CITALOPRAM HYDROBR 20 MG TAB PO SCH (10:37)
[2022-08-14] MEDS: FLORASTOR (S. BOULARDII) 250 MG CAP PO SCH (10:37)
[2022-08-14] MEDS: NYSTATIN TOPICAL POWDER 15GM TOP SCH ×2 (10:37→21:05)
[2022-08-14] MEDS: traZODone HCL 50 MG TAB PO SCH (21:03)
[2022-08-15 05:00] VITALS: BP 119/59
[2022-08-15] MEDS: NYSTATIN (MOUTH-THROAT) 500,000 UNITS/5 ML SUSP MT SCH ×4 (06:26→22:54)
[2022-08-15] MEDS: LOPERAMIDE HCL 2 MG CAP/TAB PO SCH ×4 (06:27→22:55)
[2022-08-15] MEDS: GABAPENTIN 300 MG CAP PO SCH ×3 (06:27→22:55)
[2022-08-15] MEDS: LEVOTHYROXINE SODIUM 25 MCG TAB PO SCH (06:27)
[2022-08-15] MEDS: CHOLESTYRAMINE 4 GM POWDER PO SCH (08:18)
[2022-08-15] MEDS: FLORASTOR (S. BOULARDII) 250 MG CAP PO SCH (08:18)
[2022-08-15] MEDS: NYSTATIN TOPICAL POWDER 15GM TOP SCH (08:18)
[2022-08-15] MEDS: HYDROCORTISONE ACET 25 MG RECTAL SUPP PR SCH ×2 (08:18→22:00)
[2022-08-15] MEDS: FLUCONAZOLE 100 MG TAB PO SCH (08:18)
[2022-08-15] MEDS: CITALOPRAM HYDROBR 20 MG TAB PO SCH (08:18)
[2022-08-15] MEDS: ONDANSETRON HCL 4 MG/2 ML VIAL IV PRN (08:23)
[2022-08-15 09:00] VITALS: BP 130/69
[2022-08-15] MEDS: ACETAMINOPHEN/CODEINE#3 (300/30mg) TAB PO PRN (11:50)
[2022-08-15 13:00] VITALS: BP 131/59
[2022-08-15 17:00] VITALS: BP 135/66
[2022-08-15 22:00] VITALS: BP 116/48
[2022-08-15] MEDS: traZODone HCL 50 MG TAB PO SCH (22:55)
[2022-08-16 05:00] VITALS: BP 133/67
[2022-08-16] MEDS: GABAPENTIN 300 MG CAP PO SCH ×2 (06:21→16:05)
[2022-08-16] MEDS: NYSTATIN (MOUTH-THROAT) 500,000 UNITS/5 ML SUSP MT SCH ×3 (06:21→18:31)
[2022-08-16] MEDS: LEVOTHYROXINE SODIUM 25 MCG TAB PO SCH (06:21)
[2022-08-16] MEDS: LOPERAMIDE HCL 2 MG CAP/TAB PO SCH ×3 (06:21→18:31)
[2022-08-16 06:38] LABS: Basophils # (auto) 0.1 10 ^3/uL (0-0.2); Eosinophils # (auto) 0.2 10 ^3/uL (0-0.8); Eosinophils % (auto) 1.7 % (0.0-7.0); Hematocrit 32.7 % (36.0-46.0); Hemoglobin 10.7 g/dL (12.2-16.2); Lymphocytes # (auto) 2.4 10 ^3/uL (0.4-5.4); Lymphocytes % (auto) 20.8 % (10.0-50.0); Mean Corpuscular Hemoglobin 29.4 pg (28.0-32.0); Mean Corpuscular Hgb Conc. 32.7 g/dL (32.0-36.0); Mean Corpuscular Volume 89.9 fL (80.0-100.0); Monocytes # (auto) 0.8 10 ^3/uL (0-1.3); Monocytes % (auto) 7.2 % (0.0-12.0); Neutrophils # (auto) 8.1 10 ^3/uL (1.6-8.6); Neutrophils % (auto) 69.3 % (37.0-80.0); Nucleated Red Blood Cells % 0.1 %; Red Blood Cells 3.64 10^6/uL (4.0-5.20); Red Cell Distribution Width 14.6 % (11.8-14.3); White Blood Cell 11.6 10^3/uL (4.4-10.8)
[2022-08-16 06:46] LABS: BUN/Creatinine Ratio 14.7; Potassium 4.3 mmol/L (3.5-5.1)
[2022-08-16 09:00] VITALS: BP 122/52
[2022-08-16] MEDS: HYDROCORTISONE ACET 25 MG RECTAL SUPP PR SCH (11:46)
[2022-08-16] MEDS: FLUCONAZOLE 100 MG TAB PO SCH (11:46)
[2022-08-16] MEDS: CITALOPRAM HYDROBR 20 MG TAB PO SCH (11:46)
[2022-08-16] MEDS: FLORASTOR (S. BOULARDII) 250 MG CAP PO SCH (11:53)
[2022-08-16] MEDS: ACETAMINOPHEN/CODEINE#3 (300/30mg) TAB PO PRN (12:18)
[2022-08-16 12:58] VITALS: BP 102/49
[2022-08-16] MEDS ORDERED: NYS15TP TOP (13:59)
[2022-08-16] MEDS ORDERED: LOP2C PO (13:59)
[2022-08-16] MEDS ORDERED: FLUC100T34 PO (13:59)
[2022-08-16] MEDS ORDERED: FUROSEMIDE 20 MG/2 ML VIAL IV ONE (14:00)
[2022-08-16] MEDS ORDERED: POTASSIUM CHL 20 Meq TABLET PO ONE (14:00)
[2022-08-16 17:01] VITALS: BP 126/88
== END 2022-08-16 19:50 | disposition home or self-care (01) | DRG 871 ==
LOC: ER 17:42 → OVERFLOW 22:16 → WEST WING 23:45
PROVIDERS: ADMIT Nurse Practitioner Family; ATTEND Internal Medicine
DX: A41.50 Gram-negative sepsis, unspecified (principal); J96.20 Acute and chronic respiratory failure, unspecified whether with hypoxia or hypercapnia; N17.0 Acute kidney failure with tubular necrosis; N13.6 Pyonephrosis; Z68.43 Body mass index [BMI] 50.0-59.9, adult; I50.32 Chronic diastolic (congestive) heart failure; Z20.822 Contact with and (suspected) exposure to COVID-19; N20.0 Calculus of kidney; M43.16 Spondylolisthesis, lumbar region; F32.A Depression, unspecified; F41.9 Anxiety disorder, unspecified; B96.5 Pseudomonas (aeruginosa) (mallei) (pseudomallei) as the cause of diseases classified elsewhere; E66.01 Morbid (severe) obesity due to excess calories; B37.9 Candidiasis, unspecified; E03.9 Hypothyroidism, unspecified; G47.30 Sleep apnea, unspecified; G62.9 Polyneuropathy, unspecified; K64.9 Unspecified hemorrhoids; Z88.2 Allergy status to sulfonamides; Z88.8 Allergy status to other drugs, medicaments and biological substances
CPT/HCPCS: 36415; 71045; 74176; 76775; 80048; 80053; 80202; 81001; 82270; 85007; 85025; 85027; 87040; 87077; 87086; 87088; 87186; 87493; 93971; 96361; 96365; 96375; G0378; J0696; J1450; J1885; J1956; J2405; J2543

== ENCOUNTER → 2022-08-22 | Outpatient (CLI) | payer MEDICARE, MEDICAID ==
[~2022-08-22] MED LIST changes: +CIPR-173 PO; +ESCI-34 PO; +FLUC100T34 PO; +LEV50T PO; +LOP2C PO; +NYS15TP TOP; +PREG75CA PO; +TRAM-297 PO; +TRAZ100T3 PO
[2022-08-22 15:03] LABS: Basophils # (auto) 0.1 10 ^3/uL (0-0.2); Eosinophils # (auto) 0.4 10 ^3/uL (0-0.8); Hemoglobin 11.5 g/dL (12.2-16.2); Lymphocytes # (auto) 2.8 10 ^3/uL (0.4-5.4); Monocytes # (auto) 0.7 10 ^3/uL (0-1.3); Nucleated Red Blood Cells % 0.1 %
[2022-08-22 15:04] LABS: Eosinophils % (auto) 4.6 % (0.0-7.0); Hematocrit 35.4 % (36.0-46.0); Lymphocytes % (auto) 33.7 % (10.0-50.0); Mean Corpuscular Hemoglobin 28.8 pg (28.0-32.0); Mean Corpuscular Hgb Conc. 32.4 g/dL (32.0-36.0); Mean Corpuscular Volume 88.7 fL (80.0-100.0); Monocytes % (auto) 8.8 % (0.0-12.0); Neutrophils # (auto) 4.3 10 ^3/uL (1.6-8.6); Neutrophils % (auto) 51.9 % (37.0-80.0); Red Blood Cells 3.99 10^6/uL (4.0-5.20); Red Cell Distribution Width 14.9 % (11.8-14.3); White Blood Cell 8.3 10^3/uL (4.4-10.8)
[2022-08-22 15:35] LABS: Urine Bacteria NONE SEEN /hpf (None Seen); Urine Blood Negative /uL (Negative); Urine Specific Gravity 1.017 (1.001-1.035); Urine WBC 18 /hpf (0 - 5)
[2022-08-22 16:56] LABS: Calcium 9.4 mg/dL (8.5-10.1)
[2022-08-22 17:13] LABS: BUN/Creatinine Ratio 17.1; Bilirubin, Total 0.3 mg/dL (0.2-1.0); Total Protein 7.6 g/dL (6.4-8.2)
== END | disposition home or self-care (01) ==
LOC: LAB 14:44
PROVIDERS: ATTEND Internal Medicine
DX: E03.9 Hypothyroidism, unspecified (principal); B37.9 Candidiasis, unspecified; N39.0 Urinary tract infection, site not specified; A41.9 Sepsis, unspecified organism; D72.829 Elevated white blood cell count, unspecified; Z12.11 Encounter for screening for malignant neoplasm of colon
CPT/HCPCS: 36415; 80053; 81001; 83735; 85025

== ENCOUNTER → 2022-08-27 | Outpatient (CLI) | payer MEDICARE, MEDICAID | END | disposition home or self-care (01) | LOC: LAB 14:20 | PROVIDERS: ATTEND Internal Medicine | DX: Z12.11 Encounter for screening for malignant neoplasm of colon (principal); N39.0 Urinary tract infection, site not specified; A41.9 Sepsis, unspecified organism; E03.9 Hypothyroidism, unspecified; D72.819 Decreased white blood cell count, unspecified | CPT/HCPCS: 82270; 87493 ==

== ENCOUNTER → 2022-10-10 | Outpatient (CLI) | payer MEDICARE, MEDICAID ==
[2022-10-10 15:11] LABS: Basophils # (auto) 0.1 10 ^3/uL (0-0.2); Basophils % (auto) 0.9 % (0.0-2.0); Eosinophils # (auto) 0.3 10 ^3/uL (0-0.8); Eosinophils % (auto) 3.5 % (0.0-7.0); Hematocrit 41.7 % (36.0-46.0); Hemoglobin 13.9 g/dL (12.2-16.2); Lymphocytes # (auto) 2.3 10 ^3/uL (0.4-5.4); Lymphocytes % (auto) 28.1 % (10.0-50.0); Mean Corpuscular Hemoglobin 29.5 pg (28.0-32.0); Mean Corpuscular Hgb Conc. 33.3 g/dL (32.0-36.0); Mean Corpuscular Volume 88.5 fL (80.0-100.0); Monocytes # (auto) 0.6 10 ^3/uL (0-1.3); Neutrophils # (auto) 5.1 10 ^3/uL (1.6-8.6); Neutrophils % (auto) 60.5 % (37.0-80.0); Red Blood Cells 4.71 10^6/uL (4.0-5.20); Red Cell Distribution Width 14.7 % (11.8-14.3); White Blood Cell 8.3 10^3/uL (4.4-10.8)
[2022-10-10 15:35] LABS: Albumin 3.5 g/dL (3.4-5.0); Calcium 9.8 mg/dL (8.5-10.1); Potassium 3.8 mmol/L (3.5-5.1)
[2022-10-10 15:39] LABS: Bilirubin, Total 0.6 mg/dL (0.2-1.0)
== END | disposition home or self-care (01) ==
LOC: LAB 14:49
PROVIDERS: ATTEND Internal Medicine
DX: J96.10 Chronic respiratory failure, unspecified whether with hypoxia or hypercapnia (principal); N17.9 Acute kidney failure, unspecified; N20.0 Calculus of kidney; I50.9 Heart failure, unspecified
CPT/HCPCS: 36415; 80053; 80061; 85025

== ENCOUNTER → 2022-12-31 | Outpatient (CLI) | payer MEDICARE, MEDICAID ==
[2022-12-31 12:24] LABS: Albumin 3.4 g/dL (3.4-5.0)
[2022-12-31 12:29] LABS: Bilirubin, Direct 0.2 mg/dL (0-0.2); Bilirubin, Total 0.7 mg/dL (0.2-1.0); Total Protein 8.1 g/dL (6.4-8.2); Uric Acid 5.3 mg/dL (2.6-6.0)
== END | disposition home or self-care (01) ==
LOC: LAB 11:43
PROVIDERS: ATTEND Internal Medicine
DX: E78.5 Hyperlipidemia, unspecified (principal); E03.9 Hypothyroidism, unspecified; E11.9 Type 2 diabetes mellitus without complications
CPT/HCPCS: 36415; 80061; 80076; 83036; 84550

== ENCOUNTER → 2023-03-26 | Outpatient (CLI) | payer MEDICARE, MEDICAID ==
[2023-03-26 14:54] LABS: Basophils # (auto) 0.1 10 ^3/uL (0-0.2); Basophils % (auto) 0.7 % (0.0-2.0); Eosinophils # (auto) 0.3 10 ^3/uL (0-0.8); Eosinophils % (auto) 3.3 % (0.0-7.0); Hematocrit 43.2 % (36.0-46.0); Hemoglobin 14.3 g/dL (12.2-16.2); Lymphocytes # (auto) 2.7 10 ^3/uL (0.4-5.4); Mean Corpuscular Hemoglobin 29.1 pg (28.0-32.0); Mean Corpuscular Hgb Conc. 33.1 g/dL (32.0-36.0); Mean Corpuscular Volume 87.8 fL (80.0-100.0); Monocytes # (auto) 0.8 10 ^3/uL (0-1.3); Monocytes % (auto) 8.8 % (0.0-12.0); Neutrophils # (auto) 5.7 10 ^3/uL (1.6-8.6); Neutrophils % (auto) 59.2 % (37.0-80.0); Nucleated Red Blood Cells % 0.2 %; Red Blood Cells 4.92 10^6/uL (4.0-5.20); Red Cell Distribution Width 14.3 % (11.8-14.3); White Blood Cell 9.6 10^3/uL (4.4-10.8)
[2023-03-26 15:37] LABS: Albumin 3.4 g/dL (3.4-5.0); BUN/Creatinine Ratio 19.8 (10.0-20.0); Calcium 9.8 mg/dL (8.5-10.1)
[2023-03-26 15:40] LABS: Bilirubin, Total 0.4 mg/dL (0.2-1.0); Total Protein 8.2 g/dL (6.4-8.2)
== END | disposition home or self-care (01) ==
LOC: LAB 14:38
PROVIDERS: ATTEND Internal Medicine
DX: I10 Essential (primary) hypertension (principal); N39.0 Urinary tract infection, site not specified; E78.5 Hyperlipidemia, unspecified; R73.03 Prediabetes; Z86.19 Personal history of other infectious and parasitic diseases
CPT/HCPCS: 36415; 80053; 85025

== ENCOUNTER → 2023-04-01 | Outpatient (CLI) | payer MEDICARE, MEDICAID ==
[~2023-04-01] MED LIST changes: -ESCI-34 PO; +ESCI1TAB37 PO; +TRAZ-228 PO; -TRAZ100T3 PO
== END | disposition home or self-care (01) ==
LOC: Rad HDHVI 13:03
PROVIDERS: ATTEND Internal Medicine Cardiovascular Disease
DX: I35.0 Nonrheumatic aortic (valve) stenosis (principal); R00.2 Palpitations; E78.5 Hyperlipidemia, unspecified
CPT/HCPCS: 93306

== ENCOUNTER → 2023-04-15 | Outpatient (CLI) | payer MEDICARE, MEDICAID ==
[~2023-04-15] VITALS: Ht 157.5 cm; Wt 135.2 kg
[~2023-04-15] MED LIST changes: +ADENOSINE 114 MG in GIVE UN-DILUTED 0 ML IV ONE; +ADENOSINE 90 MG/30 ML INJ IV ONE
== END | disposition home or self-care (01) ==
LOC: Rad HDHVI 14:14
PROVIDERS: ATTEND Internal Medicine Cardiovascular Disease
DX: I11.9 Hypertensive heart disease without heart failure (principal); R07.9 Chest pain, unspecified; E78.5 Hyperlipidemia, unspecified; R06.02 Shortness of breath; E78.00 Pure hypercholesterolemia, unspecified
CPT/HCPCS: 78452; 93005; 96374; 96375; A9500; J0153

== ENCOUNTER → 2023-05-15 | Outpatient (CLI) | payer MEDICARE, MEDICAID ==
[~2023-05-15] MED LIST changes: -ADENOSINE 114 MG in GIVE UN-DILUTED 0 ML IV ONE; -ADENOSINE 90 MG/30 ML INJ IV ONE
[2023-05-15 17:08] LABS: Cholesterol 252 mg/dL (< 200); HDL Cholesterol 69 mg/dL (40-59); LDL Cholesterol 142 mg/dL (< 100); Triglycerides 235 mg/dL (< 150)
== END | disposition home or self-care (01) ==
LOC: LAB 15:46
PROVIDERS: ATTEND Internal Medicine Cardiovascular Disease
DX: I10 Essential (primary) hypertension (principal); E11.9 Type 2 diabetes mellitus without complications; R00.2 Palpitations; D51.3 Other dietary vitamin B12 deficiency anemia; E55.9 Vitamin D deficiency, unspecified; R00.0 Tachycardia, unspecified; R30.0 Dysuria; R53.1 Weakness
CPT/HCPCS: 36415; 80061

== ENCOUNTER → 2023-05-28 | Outpatient (CLI) | payer MEDICARE, MEDICAID | END | disposition home or self-care (01) | LOC: Rad HDHVI 15:16 | PROVIDERS: ATTEND Internal Medicine Cardiovascular Disease | DX: I82.409 Acute embolism and thrombosis of unspecified deep veins of unspecified lower extremity (principal); R60.9 Edema, unspecified | CPT/HCPCS: 93970 ==

== ENCOUNTER → 2023-06-10 | Outpatient (CLI) | payer MEDICARE, MEDICAID | END | disposition home or self-care (01) | LOC: XYW 14:13 | PROVIDERS: ATTEND Internal Medicine | DX: M79.604 Pain in right leg (principal) | CPT/HCPCS: 93925 ==

== ENCOUNTER → 2024-03-19 | Outpatient (CLI) | payer MEDICARE, MEDICAID ==
[~2024-03-19] MED LIST changes: -ALBUAER3 IN; +ALLO300T2 PO; +APPLTAB2 OR; -CHOL1CAP47 PO; -CIPR-173 PO; -FLUC100T34 PO; -FURO40TA4 PO; -GABA-339 PO; +HYOS0.1250 PO; -LOP2C PO; -NYS15TP TOP; +POTA-215 PO; -POTA1TAB61 PO; +TORS20TA19 PO; -TRAM-297 PO; -TRAZ-228 PO; +TURMPOW XX
[2024-03-19 12:31] LABS: Urine Bacteria None Seen /hpf (None Seen)
[2024-03-19 12:35] LABS: Basophils # (auto) 0.1 10 ^3/uL (0-0.2); Basophils % (auto) 0.7 % (0.0-2.0); Eosinophils # (auto) 0.3 10 ^3/uL (0-0.8); Hematocrit 40.1 % (36.0-46.0); Lymphocytes # (auto) 2.7 10 ^3/uL (0.4-5.4); Mean Corpuscular Hemoglobin 28.9 pg (28.0-32.0); Mean Corpuscular Hgb Conc. 32.5 g/dL (32.0-36.0); Monocytes # (auto) 0.8 10 ^3/uL (0-1.3); Monocytes % (auto) 8.5 % (0.0-12.0); Neutrophils # (auto) 5.6 10 ^3/uL (1.6-8.6); Neutrophils % (auto) 58.8 % (37.0-80.0); Nucleated Red Blood Cells % 0.1 %; Red Blood Cells 4.51 10^6/uL (4.0-5.20); Red Cell Distribution Width 13.8 % (11.8-14.3); White Blood Cell 9.5 10^3/uL (4.4-10.8)
[2024-03-19 13:09] LABS: Alanine Aminotransferase 15 U/L (7-40); Alkaline Phosphatase 99 U/L (46-116); Anion Gap 8 (5-15); Aspartate Aminotransferase 13 U/L (13-40); BUN/Creatinine Ratio 16.3 (10.0-20.0); Blood Urea Nitrogen 21 mg/dL (9-23); Calcium 9.9 mg/dL (8.5-10.1); Carbon Dioxide 29 mmol/L (20-30); Chloride 102 mmol/L (98-107); Glucose 92 mg/dL (74-106); LDL Cholesterol 133 mg/dL (< 100); Potassium 4.2 mmol/L (3.5-5.1); Sodium 139 mmol/L (136-145); Triglycerides 181 mg/dL (< 150)
[2024-03-19 13:10] LABS: Albumin 4.3 g/dL (3.2-4.8); Bilirubin, Total 0.6 mg/dL (0.2-1.0); Cholesterol 229 mg/dL (< 200); HDL Cholesterol 74 mg/dL (40-59); Total Protein 7.7 g/dL (5.7-8.2)
[2024-03-19 13:12] LABS: Folate (Folic Acid) 20.67 ng/mL (>5.38)
[2024-03-19 13:33] LABS: Urine Blood Negative /uL (Negative); Urine Clarity Clear (Clear); Urine Color Light-Yellow (Yellow); Urine Hyaline Cast FEW /lpf (0 - 2); Urine Mucus FEW (None Seen); Urine Protein, UAD Negative (Negative); Urine Urobilinogen Normal (Negative); Urine WBC 2 /hpf (0 - 5); Urine pH 6.5 (5.0-9.0)
[2024-03-19 14:16] LABS: Micro Albumin < 3.0 mg/L (<30.0)
[2024-03-19 14:22] LABS: Microalb/Creat Ratio, Urine < 3.0
== END | disposition home or self-care (01) ==
LOC: LAB 12:08
PROVIDERS: ATTEND Internal Medicine
DX: I10 Essential (primary) hypertension (principal); E66.9 Obesity, unspecified; R73.03 Prediabetes; E78.5 Hyperlipidemia, unspecified; R00.2 Palpitations; Z79.899 Other long term (current) drug therapy
CPT/HCPCS: 36415; 80053; 80061; 81001; 82043; 82306; 82570; 82607; 82746; 83036; 84443; 85025

== ENCOUNTER 2024-03-30 07:56 | Day surgery (SDC) | payer MEDICARE, MEDICAID ==
[2024-03-29 13:15] LABS: Basophils # (auto) 0.1 10 ^3/uL (0-0.2); Basophils % (auto) 0.6 % (0.0-2.0); Eosinophils # (auto) 0.2 10 ^3/uL (0-0.8); Eosinophils % (auto) 2.3 % (0.0-7.0); Hematocrit 43.4 % (36.0-46.0); Hemoglobin 14.5 g/dL (12.2-16.2); Lymphocytes % (auto) 34.7 % (10.0-50.0); Mean Corpuscular Hemoglobin 29.7 pg (28.0-32.0); Mean Corpuscular Hgb Conc. 33.3 g/dL (32.0-36.0); Mean Corpuscular Volume 89.3 fL (80.0-100.0); Monocytes # (auto) 0.7 10 ^3/uL (0-1.3); Monocytes % (auto) 8.7 % (0.0-12.0); Neutrophils # (auto) 4.6 10 ^3/uL (1.6-8.6); Neutrophils % (auto) 53.7 % (37.0-80.0); Nucleated Red Blood Cells % 0.1 %; Red Blood Cells 4.87 10^6/uL (4.0-5.20); Red Cell Distribution Width 13.6 % (11.8-14.3); White Blood Cell 8.6 10^3/uL (4.4-10.8)
[2024-03-29 13:17] LABS: Urine Bacteria FEW /hpf (None Seen); Urine Blood Negative /uL (Negative); Urine Clarity Clear (Clear); Urine Color Light-Yellow (Yellow); Urine Protein, UAD Negative (Negative); Urine Specific Gravity 1.022 (1.001-1.035); Urine Urobilinogen Normal (Negative); Urine WBC 24 /hpf (0 - 5)
[2024-03-29 13:34] LABS: INR 1.1 (0.9-1.15); Prothrombin Time 11.6 sec (9.3-11.8)
[2024-03-29 14:01] LABS: Alanine Aminotransferase 13 U/L (7-40); Albumin 4.6 g/dL (3.2-4.8); Alkaline Phosphatase 107 U/L (46-116); Anion Gap 7 (5-15); Aspartate Aminotransferase 12 U/L (13-40); BUN/Creatinine Ratio 29.9 (10.0-20.0); Bilirubin, Total 0.4 mg/dL (0.2-1.0); Blood Urea Nitrogen 29 mg/dL (9-23); Calcium 10.2 mg/dL (8.5-10.1); Carbon Dioxide 28 mmol/L (20-30); Chloride 102 mmol/L (98-107); Glucose 90 mg/dL (74-106); Potassium 3.9 mmol/L (3.5-5.1); Sodium 137 mmol/L (136-145); Total Protein 8.3 g/dL (5.7-8.2)
[~2024-03-30] VITALS: Ht 157.5 cm; Wt 136.1 kg
[~2024-03-30 07:56] MED LIST changes: -APPLTAB2 OR; +CHOL500046 PO; -DOXE25CA2 PO; -ESCI1TAB37 PO; -TURMPOW XX
[2024-03-30] MEDS ORDERED: CIPROFLOXACIN 400MG/200ML 200 ML IV ONE (10:38)
[2024-03-30] MEDS ORDERED: SUCCINYLCHOLINE CHLORIDE 20 MG/ML 10ML VIAL IV ONE (11:27)
[2024-03-30] MEDS ORDERED: fentaNYL CITRATE 100 MCG/2 ML VL ONE (11:32)
[2024-03-30] MEDS ORDERED: MIDAZOLAM HCL 2MG/2ML 2ml VIAL (1mg/ml) ONE (11:32)
[2024-03-30] MEDS ORDERED: ONDANSETRON HCL 4 MG/2 ML VIAL IV ONE (12:15)
[2024-03-30] MEDS ORDERED: HYDROmorphone HCL 2 MG/ML VL/or syr IV PRN (12:15)
[2024-03-30 12:34] VITALS: TEMP 98.5
[2024-03-30] MEDS ORDERED: NEOSTIGMINE 1 MG/ML INJ (10mg/10ML VIAL) ONE (12:35)
[2024-03-30] MEDS ORDERED: GLYCOPYRROLATE 0.2 MG/ML 1ML VIAL ONE (12:35)
[2024-03-30 12:43] VITALS: PULSE 87; RESP 17; O2SAT 95
[2024-03-30] MEDS ORDERED: MEPERIDINE HCL (25 MG/ML) 1ML VIAL ONE (13:04)
[2024-03-30] MEDS: MEPERIDINE HCL (25 MG/ML) 1ML VIAL IV ONE (13:05)
[2024-03-30 13:19] VITALS: BP 134/63; PULSE 77; RESP 15; O2SAT 98
== END 2024-03-30 13:40 | disposition home or self-care (01) ==
LOC: SUR 07:56
PROVIDERS: ATTEND Urology
DX: N20.0 Calculus of kidney (principal); F41.9 Anxiety disorder, unspecified; I50.9 Heart failure, unspecified; G47.30 Sleep apnea, unspecified; E03.9 Hypothyroidism, unspecified; G62.9 Polyneuropathy, unspecified; E66.01 Morbid (severe) obesity due to excess calories; Z88.2 Allergy status to sulfonamides; Z79.899 Other long term (current) drug therapy; Z98.890 Other specified postprocedural states; Z68.43 Body mass index [BMI] 50.0-59.9, adult; Z88.6 Allergy status to analgesic agent; Z79.890 Hormone replacement therapy
CPT/HCPCS: 36415; 50590; 74420; 80053; 81001; 85025; 85610; 85730; 87086; C1769; J0330; J0744; J2175; J2250; J3010; J7030; Q9967

== ENCOUNTER → 2024-04-15 | Day surgery (SDC) | payer MEDICARE, MEDICAID ==
[2024-04-13 14:47] LABS: Urine Bacteria None Seen /hpf (None Seen)
[2024-04-13 14:52] LABS: Basophils # (auto) 0.1 10 ^3/uL (0-0.2); Basophils % (auto) 0.8 % (0.0-2.0); Eosinophils # (auto) 0.2 10 ^3/uL (0-0.8); Eosinophils % (auto) 2.8 % (0.0-7.0); Hematocrit 41.5 % (36.0-46.0); Hemoglobin 13.7 g/dL (12.2-16.2); Lymphocytes # (auto) 2.2 10 ^3/uL (0.4-5.4); Lymphocytes % (auto) 28.5 % (10.0-50.0); Mean Corpuscular Hemoglobin 28.9 pg (28.0-32.0); Mean Corpuscular Hgb Conc. 32.9 g/dL (32.0-36.0); Mean Corpuscular Volume 87.6 fL (80.0-100.0); Monocytes # (auto) 0.6 10 ^3/uL (0-1.3); Monocytes % (auto) 8.3 % (0.0-12.0); Neutrophils # (auto) 4.5 10 ^3/uL (1.6-8.6); Neutrophils % (auto) 59.6 % (37.0-80.0); Nucleated Red Blood Cells % 0.1 %; Red Blood Cells 4.73 10^6/uL (4.0-5.20); Red Cell Distribution Width 13.4 % (11.8-14.3); White Blood Cell 7.6 10^3/uL (4.4-10.8)
[2024-04-13 15:10] LABS: INR 1.11 (0.9-1.15); Partial Thromboplastin Time 28.7 SEC (24.5-34.5); Prothrombin Time 11.7 sec (9.3-11.8)
[2024-04-13 15:11] LABS: Urine Blood Negative /uL (Negative); Urine Clarity Clear (Clear); Urine Color Light-Yellow (Yellow); Urine Protein, UAD Negative (Negative); Urine Specific Gravity 1.021 (1.001-1.035); Urine Urobilinogen Normal (Negative); Urine WBC 1 /hpf (0 - 5); Urine pH 5.5 (5.0-9.0)
[2024-04-13 15:20] LABS: Alanine Aminotransferase 15 U/L (7-40); Alkaline Phosphatase 94 U/L (46-116); Anion Gap 8 (5-15); Aspartate Aminotransferase 10 U/L (13-40); BUN/Creatinine Ratio 16.3 (10.0-20.0); Blood Urea Nitrogen 15 mg/dL (9-23); Calcium 9.8 mg/dL (8.5-10.1); Carbon Dioxide 27 mmol/L (20-30); Chloride 106 mmol/L (98-107); Glucose 117 mg/dL (74-106); Potassium 3.7 mmol/L (3.5-5.1); Sodium 141 mmol/L (136-145)
[2024-04-13 15:21] LABS: Albumin 4.1 g/dL (3.2-4.8); Bilirubin, Total 0.6 mg/dL (0.2-1.0); Total Protein 7.4 g/dL (5.7-8.2)
[~2024-04-15] VITALS: Ht 30.5 cm; Wt 0.5 kg
[~2024-04-15] MED LIST changes: +HYDROmorphone HCL 2 MG/ML VL/or syr IV PRN; +KETAMINE 50mg/ML 1ml syringe ONE; +METOCLOPRAMIDE HCL 5MG/ml INJ 2ml VIAL IV ONE; +MIDAZOLAM HCL 2MG/2ML 2ml VIAL (1mg/ml) ONE; +MORPHINE SULFATE INJ 2 MG/ml SYRG IV PRN; +ONDANSETRON HCL 4 MG/2 ML VIAL ONE; +PROPOFOL 10 MG/ML 20 ML IV ONE; +SODIUM CHLORIDE LOCK 10 ML ONE; +fentaNYL CITRATE 100 MCG/2 ML VL IV PRN; +fentaNYL CITRATE 100 MCG/2 ML VL ONE
[2024-04-15 11:00] VITALS: TEMP 98.3; O2SAT 98
[2024-04-15 11:39] VITALS: BP 129/48; PULSE 75; RESP 12; O2SAT 93
== END | disposition home or self-care (01) ==
LOC: GI 09:03
PROVIDERS: ATTEND Internal Medicine Gastroenterology
DX: K59.00 Constipation, unspecified (principal); R10.9 Unspecified abdominal pain; D12.0 Benign neoplasm of cecum; D12.3 Benign neoplasm of transverse colon; K57.30 Diverticulosis of large intestine without perforation or abscess without bleeding; G62.9 Polyneuropathy, unspecified; I11.0 Hypertensive heart disease with heart failure; I50.9 Heart failure, unspecified; M06.9 Rheumatoid arthritis, unspecified; J44.9 Chronic obstructive pulmonary disease, unspecified; E66.01 Morbid (severe) obesity due to excess calories; E03.9 Hypothyroidism, unspecified; G47.33 Obstructive sleep apnea (adult) (pediatric); F32.A Depression, unspecified; F41.9 Anxiety disorder, unspecified; Z88.2 Allergy status to sulfonamides; Z79.82 Long term (current) use of aspirin; Z95.820 Peripheral vascular angioplasty status with implants and grafts; Z79.899 Other long term (current) drug therapy; Z98.890 Other specified postprocedural states; Z68.43 Body mass index [BMI] 50.0-59.9, adult; Z88.5 Allergy status to narcotic agent; Z88.8 Allergy status to other drugs, medicaments and biological substances; Z79.890 Hormone replacement therapy
CPT/HCPCS: 36415; 45380; 80053; 81001; 85025; 85610; 85730; 88305; J2250; J2405; J2704; J3010; J7030

== ENCOUNTER → 2024-08-31 | Outpatient (CLI) | payer MEDICARE, MEDICAID ==
[~2024-08-31] MED LIST changes: -HYDROmorphone HCL 2 MG/ML VL/or syr IV PRN; -KETAMINE 50mg/ML 1ml syringe ONE; -LEV50T PO; +LEVO-848 PO; -METOCLOPRAMIDE HCL 5MG/ml INJ 2ml VIAL IV ONE; -MIDAZOLAM HCL 2MG/2ML 2ml VIAL (1mg/ml) ONE; -MORPHINE SULFATE INJ 2 MG/ml SYRG IV PRN; -ONDANSETRON HCL 4 MG/2 ML VIAL ONE; -PROPOFOL 10 MG/ML 20 ML IV ONE; -SODIUM CHLORIDE LOCK 10 ML ONE; -fentaNYL CITRATE 100 MCG/2 ML VL IV PRN; -fentaNYL CITRATE 100 MCG/2 ML VL ONE
[2024-08-31 15:55] LABS: Basophils # (auto) 0.1 10 ^3/uL (0-0.2); Basophils % (auto) 0.9 % (0.0-2.0); Eosinophils # (auto) 0.2 10 ^3/uL (0-0.8); Eosinophils % (auto) 2.9 % (0.0-7.0); Hemoglobin 14.5 g/dL (12.2-16.2); Lymphocytes # (auto) 2.8 10 ^3/uL (0.4-5.4); Lymphocytes % (auto) 35.1 % (10.0-50.0); Mean Corpuscular Hemoglobin 29.6 pg (28.0-32.0); Mean Corpuscular Hgb Conc. 33.8 g/dL (32.0-36.0); Mean Corpuscular Volume 87.7 fL (80.0-100.0); Monocytes # (auto) 0.6 10 ^3/uL (0-1.3); Monocytes % (auto) 7.7 % (0.0-12.0); Neutrophils # (auto) 4.3 10 ^3/uL (1.6-8.6); Neutrophils % (auto) 53.4 % (37.0-80.0); Platelet Count (auto) 357 10^3/uL (140-450); Red Blood Cells 4.91 10^6/uL (4.0-5.20); Red Cell Distribution Width 13.7 % (11.8-14.3); White Blood Cell 8.1 10^3/uL (4.4-10.8)
[2024-08-31 16:03] LABS: Urine Bacteria FEW /hpf (None Seen); Urine Blood Negative /uL (Negative); Urine Clarity Turbid (Clear); Urine Color Light-Yellow (Yellow); Urine Protein, UAD Negative (Negative); Urine Specific Gravity 1.018 (1.001-1.035); Urine Urobilinogen Normal (Negative); Urine WBC 137 /hpf (0 - 5); Urine pH 5.5 (5.0-9.0)
[2024-08-31 16:46] LABS: Alanine Aminotransferase 14 U/L (7-40); Albumin 4.4 g/dL (3.2-4.8); Alkaline Phosphatase 104 U/L (46-116); Amylase 49 U/L (30-118); Anion Gap 7 (5-15); Aspartate Aminotransferase 12 U/L (13-40); BUN/Creatinine Ratio 15.5 (10.0-20.0); Bilirubin, Total 0.8 mg/dL (0.2-1.0); Blood Urea Nitrogen 15 mg/dL (9-23); Calcium 10.4 mg/dL (8.7-10.4); Carbon Dioxide 26 mmol/L (20-31); Chloride 106 mmol/L (98-107); Cholesterol 234 mg/dL (< 200); Glucose 90 mg/dL (74-106); HDL Cholesterol 72 mg/dL (40-59); LDL Cholesterol 139 mg/dL (< 100); Potassium 3.9 mmol/L (3.5-5.1); Sodium 139 mmol/L (136-145); Total Protein 7.9 g/dL (5.7-8.2); Triglycerides 205 mg/dL (< 150)
[2024-08-31 16:49] LABS: Carcinoembryonic Antigen 1.67 ng/mL (<=5.0)
[2024-08-31 17:04] LABS: Lipase 33 U/L (12-53)
[2024-08-31 17:10] LABS: Erythrocyte Sedimentation Rate 43 mm/hr (0-20)
[2024-09-01 12:06] LABS: Cancer Antigen (CA) 125 6.7 U/mL (0.0-38.1)
== END | disposition home or self-care (01) ==
LOC: LAB 15:32
PROVIDERS: ATTEND Internal Medicine
DX: N32.81 Overactive bladder (principal); E78.5 Hyperlipidemia, unspecified; R73.03 Prediabetes; Z79.899 Other long term (current) drug therapy; R06.02 Shortness of breath; I50.9 Heart failure, unspecified; N26.1 Atrophy of kidney (terminal)
CPT/HCPCS: 36415; 80053; 80061; 81001; 82150; 82306; 82378; 82607; 83036; 83690; 84443; 85025; 85652; 86301; 86304

== ENCOUNTER → 2024-10-27 | Outpatient (CLI) | payer MEDICARE, MEDICAID ==
--- NOTE | 2024-10-28 10:30 | DVHSR ---
APPROVED REPORT EXAM: Two-dimensional and M-mode echocardiogram with Doppler and color Doppler. RISK FACTORS Obesity: DIMENSIONS LVDd3.3 (3.8-5.7cm)LA (2D)4.1 (1.9-4.0cm)Aortic Root3.4 (2.0-3.7cm) LVDs2.5 (2.5-4.0cm)LA (MM) (1.9-4.0cm)Aortic Cusp Exc1.6 (1.5-2.0cm) EF (%) 50.0 (55-70%)Rt. Atrium (1.9-4.0cm)Asc. Aorta cm IVSd1.2 (0.7-1.1cm)RV (D) (1.8-2.4cm) PWd1.2 (0.7-1.1cm) Mitral Valve MitralMitral Stenosis E wave0.92m/sMV Mean GR.mmHg A wave0.68m/sMV Peak GR.mmHg E/A ratio1.42D MVAcm2 DECEL [id number] 1/2 Timems Aortic Valve Aortic ValveAortic Stenosis V10.86m/Bere Mean GR.3mmHg V21.12m/Bere Peak GR.5mmHg LVOT Diameter1.9 (1.8-2.4cm)Doppler AVA2.18cm2 Pulmonic Valve V20.96m/s LEFT VENTRICLE The left ventricle is normal size. There is borderline concentric left ventricular hypertrophy. The left ventricle is normal in structure and function. The Ejection Fraction is within normal limits. RIGHT VENTRICLE The right ventricle is normal size. ATRIA The left atrium is enlarged. The right atrium is not well visualized. The interatrial septum is intact with no evidence for an atrial septal defect. MITRAL VALVE The mitral valve is normal in structure and function. Mitral regurgitation is mild. PULMONIC VALVE The pulmonic valve is not well visualized. TRICUSPID VALVE The tricuspid valve is grossly normal. AORTIC VALVE The aortic valve opens well. No aortic regurgitation is present. GREAT VESSELS The aortic root is normal size. PERICARDIAL EFFUSION There is no pericardial effusion. Other Information Quality : LimitedRhythm : Technically limited study due to body habitus, patient lying flat Conclusion TDS EF 50-55% LVH MILD MR
== END | disposition home or self-care (01) ==
LOC: Rad HDHVI 10:08
PROVIDERS: ATTEND Internal Medicine Cardiovascular Disease
DX: I34.0 Nonrheumatic mitral (valve) insufficiency (principal); I51.7 Cardiomegaly; I50.9 Heart failure, unspecified; E66.9 Obesity, unspecified; I31.39 Other pericardial effusion (noninflammatory); V89.2XXA Person injured in unspecified motor-vehicle accident, traffic, initial encounter
CPT/HCPCS: 93306

== ENCOUNTER → 2024-11-22 | Outpatient (CLI) | payer MEDICARE, MEDICAID ==
[2024-11-22 13:52] LABS: Urine Blood TRACE /uL (Negative); Urine Clarity Turbid (Clear); Urine Color Colorless (Yellow); Urine Protein, UAD TRACE (Negative); Urine Specific Gravity 1.019 (1.001-1.035); Urine Urobilinogen Normal (Negative); Urine pH 5.5 (5.0-9.0)
== END | disposition home or self-care (01) ==
LOC: LAB 13:04
PROVIDERS: ATTEND Internal Medicine Cardiovascular Disease
DX: N39.0 Urinary tract infection, site not specified (principal)
CPT/HCPCS: 81003; 87086

== ENCOUNTER 2025-07-05 13:57 | Emergency (ER) | payer MEDICARE, MEDICAID ==
[~2025-07-05] VITALS: Ht 162.6 cm; Wt 125.6 kg
[2025-07-05 14:02] VITALS: BP 131/66; RESP 20; TEMP 98.2; O2SAT 93
[2025-07-05 14:30] VITALS: PULSE 93
--- NOTE | 2025-07-05 14:30 | ED.PDOC ---
History of Present Illness HPI Comments This is a 70-year-old female who comes in with chief complaint of shortness a breath with some bilateral leg swelling. The patient states that she is having the shortness for breath over the past 3-4 days. There has been leg swelling over the past four days. There has been no nausea, vomiting or diarrhea. The patient denies any fever or chills. According to the patient, she states that the swelling is the worst that has ever been. She states that she is having now tingling in her legs. She denies any cough. She does have a history of possible CHF but she is not on any medications. Currently she is in a wheelchair and unable to ambulate secondary to the leg swelling. Chief Complaint: Lower Extremity Time Seen by MD: 14:09 Primary Care Provider: NALINI Reviewed Notes: Nurses Notes, Medications, Allergies (Allergies listed above) Allergies: Coded Allergies: Sulfamethoxazole w/Trimethoprim (Verified Allergy, Unknown, 02/02/21) Acetaminophen (Unverified Adverse Reaction, Mild, headache, 03/29/24) Hydrocodone (Unverified Adverse Reaction, Mild, headache, 03/29/24) Sulfa Antibiotics (Verified Adverse Reaction, Unknown, 07/26/22) Facial droop Home Meds Reported Medications Cholecalciferol (D3 5000) 5,000 Unit Cap, 5000 UNIT PO DAILY, CAP 03/29/24 Hyoscyamine Sulfate (Levsin) 0.125 Mg Tab, 0.125 MG PO QID, TAB 12/02/23 Allopurinol (Allopurinol) 300 Mg Tab, 0.5 MG PO DAILY, TAB 12/02/23 Torsemide Injection (Torsemide) 20 Mg Tab, 3 TAB PO, TAB 12/02/23 Levothyroxine Sodium (SYNTHROID TABLET) 50 Mcg Tb, 1 TAB PO DAILY, #30 TAB 5 Refills 08/02/22 Pregabalin (Lyrica) 75 Mg Cap, 1 CAP PO TID, #60 CAP 1 Refill 08/02/22 Acetaminophen W/ Codeine (Codeine/Acetaminophen) 1 Tab Tab, 1 TAB PO, TAB 07/26/22 Multiple Vitamin (Multi Vitamin) 1 Tab Tab, 1 TAB PO DAILY, TAB 07/26/22 Magnesium Oxide (MAGNESIUM OXIDE) 400 Mg Tab, 1 TAB PO DAILY, #30 TAB 5 Refills 07/26/22 Potassium Chloride (Klor-Con M10) 10 Meq Tab, 3 TAB PO BID, #30 TAB 5 Refills 02/02/21 Information Source: Patient Mode of Arrival: Wheelchair Severity: Moderate Timing: Days Duration: Since onset Prehospital treatment: None Location: Shortness a breath with bilateral lower extremity swelling Associated signs and symptoms No chest pain Past Medical History PAST MEDICAL HISTORY: CHF, Thyroid Past Medical History (Other): Prediabetes Surgical History: Appendectomy, Cholecystectomy 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 History Family History Family History: No family hx of Cancer, Unknown Social History Smoker: Non-Smoker Alcohol: Denies ETOH Use Drugs: Denies Drug Use Lives In: Home Constitutional: denies: chills, diaphoresis, fatigue, fever, malaise, sweats, weakness, others EENTM: denies: blurred vision, double vision, ear bleeding, ear discharge, ear drainage, ear pain, ear ringing, eye pain, eye redness, hearing loss, mouth pain, mouth swelling, nasal discharge, nose bleeding, nose congestion, nose pain, photophobia, tearing, throat pain, throat swelling, voice changes, others Respiratory: reports: shortness of breath; denies: cough, hemoptysis, orthopnea, SOB at rest, SOB with excertion, stridor, wheezing, others Cardiovascular: reports: chest pain; denies: dizzy spells, diaphoresis, Dyspnea on exertion, edema, irregular heart beat, left arm pain, lightheadedness, pa lpitations, PND, syncope, others Gastrointestinal: denies: abdomen distended, abdominal pain, blood streaked bowels, constipated, diarrhea, dysphagia, difficulty swallowing, hematemesis, melena, nausea, poor appetite, poor fluid intake, rectal bleeding, rectal pain, vomiting, others Genitourinary: denies: abnormal vagina bleeding, burning, dyspareunia, dysuria, flank pain, frequency, hematuria, incontinence, pain, , vagina discharge, urgency, others Neurological: denies: dizziness, fainting, headache, left sided numbness, left sided weakness, numbness, paresthesia, pre-existing deficit, right sided numbness, right sided weakness, seizure, speech problems, tingling, tremors, weakness, others Musculoskeletal: reports: others (Bilateral lower extremity swelling); denies: back pain, gout, joint pain, joint swelling, muscle pain, muscle stiffness, neck pain Integumetry: denies: bruises, change in color, change in hair/nails, dryness, laceration, lesions, lumps, rash, wounds, others Allergic/Immunocompromised: denies: Difficulty Healing, Frequent Infections, Hives, Itching, others Hematologic/Lymphatic: denies: anemia, blood clots, easy bleeding, easy bruising, swollen glands, others Endocrine: denies: excessive hunger, excessive sweating, excessive thirst, excessive urination, flushing, intolerance to cold, intolerance to heat, unexplained weight gain, unexplained weight loss, others Psychiatric: denies: anxiety, bipolar disorder, depression, hopeless, panic disorder, schizophrenia, sleepless, suicidal, others Physical Exam General Appearance: Moderate Distress, Obese HEENT: Normal ENT Inspection, Pharynx Normal, TMs Normal Neck: Full Range of Motion, Non-Tender, Normal, Normal Inspection Respiratory: Chest Non-Tender, Lungs Clear, No Accessory Muscle Use, No Respiratory Distress, Normal Breath Sounds Cardiovascular: No Edema, No JVD, No Murmur, No Gallop, Normal Peripheral Pulses, Regular Rate/Rhythm Breast Exam: Deferred Gastrointestinal: No Organomegaly, Non Tender, No Pulsatile Mass, Normal Bowel Sounds, Soft Genitalia: Deferred Pelvic: Deferred Rectal: Deferred Extremities: Decreased range of motion, No calf tenderness, Pedal edema Musculoskeletal : Apperance: Normal Neurologic: Alert, skip operator II-XII nml as Tested, Motor Weakness, Normal Affect, Normal Mood, No Sensory Deficits Cerebellar Function: Normal Reflexes: Normal Skin: Dry, Normal Color, Warm Lymphatic: No Adenopathy Was a procedure done? Was a procedure done?: No EKG EKG : Pulse Rate (adult): 93 [place]: Normal Cardiac Rhythm: NSR Block: None ST: Nonsp (Low voltage) Differential Dx Considerations may include: ACS, [place], generalized weakness, electrolyte imbalance X-Ray, Labs, Meds, VS Vital Signs Date Time Temp Pulse Resp B/P (MAP) Pulse Ox O2 Delivery O2 Flow Rate FiO2 07/05/25 14:30 93 07/05/25 14:02 98.2 94 20 131/66 93 98.2 Lab Test 07/05/25 14:32 Range/Units White Blood Count 9.0 4.4-10.8 10^3/uL Red Blood Count 4.88 4.0-5.20 10^6/uL Hemoglobin 14.3 12.2-16.2 g/dL Hematocrit 41.8 36.0-46.0 % Mean Corpuscular Volume 85.6 80.0-100.0 fL Mean Corpuscular Hemoglobin 29.2 28.0-32.0 pg Mean Corpuscular Hemoglobin Concent 34.1 32.0-36.0 g/dL Red Cell Distribution Width 13.7 11.8-14.3 % Platelet Count 343 140-450 10^3/uL Mean Platelet Volume 7.1 6.9-10.8 fL Neutrophils (%) (Auto) 61.6 37.0-80.0 % Lymphocytes (%) (Auto) 25.8 10.0-50.0 % Monocytes (%) (Auto) 8.3 0.0-12.0 % Eosinophils (%) (Auto) 3.4 0.0-7.0 % Basophils (%) (Auto) 0.9 0.0-2.0 % Neutrophils # (Auto) 5.5 1.6-8.6 10 ^3/uL Lymphocytes # (Auto) 2.3 0.4-5.4 10 ^3/uL Monocytes # (Auto) 0.7 0-1.3 10 ^3/uL Eosinophils # (Auto) 0.3 0-0.8 10 ^3/uL Basophils # (Auto) 0.1 0-0.2 10 ^3/uL Nucleated Red Blood Cells 0.1 % Sodium Level 139 136-145 mmol/L Potassium Level 3.6 3.5-5.1 mmol/L Chloride Level 103 98-107 mmol/L Carbon Dioxide Level 27 20-31 mmol/L Anion Gap 9 5-15 Blood Urea Nitrogen 19 9-23 mg/dL Creatinine 0.96 0.550-1.02 mg/dL Glomerular Filtration Rate Calc 64 >90 mL/min BUN/Creatinine Ratio 19.8 10.0-20.0 Serum Glucose 122 H 74-106 mg/dL Calcium Level 9.5 8.7-10.4 mg/dL B-Type Natriuretic Peptide 13.53 0-100 pg/mL IV Hep-Lock was established The CBC is within normal limits The chemistry panel is within normal limits The BNP is 13.53 The chest x-ray shows no sign of any abnormalities The ultrasound of the lower extremities are negative for DVT The patient is being admitted at this time Because of the increased leg swelling we are concerned about some type of heart failure. The patient is admitted at this time Images Reviewed?: Images reviewed and evaluated by me Time of 1ST Reevaluation: 14:29 Reevaluation 1ST: Unchanged Patient Education/Counseling: Diagnosis, Treatment, Prognosis Family Education/Counseling: No Family Present SEPSIS Sepsis Screen Date sepsis recognized/suspect: Jul 05, 2025 Time Sepsis recognized/suspect: 1402 Recent Procedure: No On Antibiotic Therapy: No Respiratory Rate >20: No Heart Rate >90: Yes Temp<36 C (96.8 F) or >38.3 C: No SBP <90 or MAP <65 mmHG: No New Acute Mental Status Change: No Is the patient on CPAP, BIPAP,: No Physician Orders Chest Portable (07/05/25 14:22) Heplock Iv (07/05/25 14:22) Pulse Oximetry (07/05/25 14:22) Rhinestone Setter (07/05/25 14:22) Blood Pressure (07/05/25 14:22) Bilat Lower Dvt (07/05/25 14:22) Vital Signs Date Time Temp Pulse Resp B/P (MAP) Pulse Ox O2 Delivery O2 Flow Rate FiO2 07/05/25 14:30 93 07/05/25 14:02 98.2 94 20 131/66 93 98.2 Laboratory Tests Test 07/05/25 14:32 White Blood Count 9.0 10^3/uL (4.4-10.8) Departure 1 Departure Time of Disposition: 15:24 Impression: Primary Impression: Leg edema Additional Impression: Generalized weakness Disposition: 09 ADMITTED INPATIENT Admit to: [facility] Condition: Fair Critical Care Note Critical Care Time?: No Stability Stability form required: Yes Unstable for transfer: ED Physician Assesment (Clinical assesment) Heart Score Heart Score: Heart Score Response (Comments) Value History Moderate Suspicious 1 EKG Repolarization Disturb 1 Age >65 2 Risk Factors >3 or Hx ASHD 2 Troponin Normal limit 0 Total 6 NERIS DAVENPORT MD Jul 05, 2025 14:30
[2025-07-05 14:49] LABS: Hematocrit 41.8 % (36.0-46.0); Hemoglobin 14.3 g/dL (12.2-16.2); Mean Corpuscular Hemoglobin 29.2 pg (28.0-32.0); Mean Corpuscular Volume 85.6 fL (80.0-100.0); Nucleated Red Blood Cells % 0.1 %
[2025-07-05 14:52] LABS: Chloride 103 mmol/L (98-107); Potassium 3.6 mmol/L (3.5-5.1); Sodium 139 mmol/L (136-145)
[2025-07-05 14:53] LABS: Anion Gap 9 (5-15); Carbon Dioxide 27 mmol/L (20-31)
[2025-07-05 14:54] LABS: Calcium 9.5 mg/dL (8.7-10.4)
[2025-07-05 14:59] LABS: Glucose 122 mg/dL (74-106)
--- NOTE | 2025-07-05 15:00 | DVH ---
INDICATION: weakness TECHNIQUE: Frontal view of the chest. COMPARISON: EKG on DOS: 08/15/22, CXRP on DOS: 08/15/22, CHEST PORTABLE on DOS: 08/15/22, CHEST PORTABLE on DOS: 08/05/22 FINDINGS: . The heart and mediastinal contours are grossly unremarkable. There is no evidence of pleural disea se. The lungs are clear. The bony structures of the chest are intact without fracture. IMPRESSION: 1. No evidence of acute disease.
[2025-07-05 15:14] LABS: BUN/Creatinine Ratio 19.8 (10.0-20.0); Blood Urea Nitrogen 19 mg/dL (9-23)
--- NOTE | 2025-07-05 15:23 | DVH ---
Bilateral lower extremity venous duplex Clinical History: weakness Comparison: US BILAT LOW EXT ART DUPLEX on DOS: 06/10/23, US BILAT LOWER DVT on DOS: 05/28/23, LT UPPER DVT on DOS: 08/13/22, LUDVT on DOS: 08/13/22 Findings: Duplex Doppler evaluation of the deep venous systems of both lower extremities from the common femora l veins to the popliteal veins including color Doppler and spectral/pulsed waveform analysis was perf ormed. RIGHT SIDE: The common femoral vein demonstrates appropriate compressibility and waveform variability. There is compressibility/patency of the great saphenous vein at the proximal thigh. The femoral vein demonstrates appropriate compressibility and waveform variability. The deep femoral vein demonstrates appropriate compressibility and waveform variability. The popliteal vein demonstrates appropriate compressibility and waveform variability. There is normal compressibility at the tibioperoneal trunk. LEFT SIDE: The common femoral vein demonstrates appropriate compressibility and waveform variability. There is compressibility/patency of the great saphenous vein at the proximal thigh. The femoral vein demonstrates appropriate compressibility and waveform variability. The deep femoral vein demonstrates appropriate compressibility and waveform variability. The popliteal vein demonstrates appropriate compressibility and waveform variability. There is normal compressibility at the tibioperoneal trunk. IMPRESSION: No right or left femoropopliteal venous thrombosis. If clinical concern/symptoms persist or worsen, short-interval follow-up study is suggested. END IMPRESSION:
--- NOTE | 2025-07-05 16:54 | ECG ---
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
== END 2025-07-05 18:58 | disposition left against medical advice (07) ==
LOC: ER 13:57
DX: R60.0 Localized edema (principal); R53.1 Weakness; R20.2 Paresthesia of skin; E03.9 Hypothyroidism, unspecified; I50.9 Heart failure, unspecified; Z79.899 Other long term (current) drug therapy; Z90.49 Acquired absence of other specified parts of digestive tract; Z88.1 Allergy status to other antibiotic agents; Z88.2 Allergy status to sulfonamides; Z88.5 Allergy status to narcotic agent
CPT/HCPCS: 36415; 71045; 80048; 83880; 85025; 93005; 93970

== ENCOUNTER → 2025-07-15 | Outpatient (CLI) | payer MEDICARE, MEDICAID ==
[2025-07-15 14:16] LABS: Alanine Aminotransferase 17 U/L (7-40); Albumin 4.2 g/dL (3.2-4.8); Alkaline Phosphatase 98 U/L (46-116); Anion Gap 9 (5-15); BUN/Creatinine Ratio 14.4 (10.0-20.0); Blood Urea Nitrogen 14 mg/dL (9-23); Calcium 9.3 mg/dL (8.7-10.4); Carbon Dioxide 28 mmol/L (20-31); Chloride 103 mmol/L (98-107); Potassium 3.8 mmol/L (3.5-5.1); Sodium 140 mmol/L (136-145); Total Protein 8.0 g/dL (5.7-8.2)
[2025-07-15 14:17] LABS: Bilirubin, Total 0.5 mg/dL (0.2-1.0); Glucose 138 mg/dL (74-106)
== END | disposition home or self-care (01) ==
LOC: LAB 11:47
PROVIDERS: ATTEND Family Medicine
DX: B35.4 Tinea corporis (principal)
CPT/HCPCS: 36415; 80053